=== PATIENT | male | born 1990 | race Caucasian/White ===

== ENCOUNTER 2020-06-25 11:15 | Emergency (ER) | payer BC, SELFPAY ==
[2020-06-25 11:20] VITALS: BP 126/81; PULSE 92; RESP 22; TEMP 36.8; O2SAT 97; BMI 27.1
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
[2020-06-25 11:56] VITALS: BP 126/81; PULSE 92; RESP 22; TEMP 36.8; O2SAT 97
== END 2020-06-25 11:57 | disposition home or self-care (01) ==
PROVIDERS: Emergency Provider Emergency Medicine
DX: L03.115 Cellulitis of right lower limb (principal); Z88.0 Allergy status to penicillin; F17.210 Nicotine dependence, cigarettes, uncomplicated
CPT/HCPCS: 99202; G0463

== ENCOUNTER 2020-12-29 17:25 | Emergency (ER) | payer BC, SELFPAY ==
[2020-12-29 17:30] VITALS: BP 115/73; PULSE 85; RESP 19; TEMP 36.9; O2SAT 97; BMI 27.1
[2020-12-29 17:54] VITALS: BP 115/73; PULSE 85; RESP 19; TEMP 36.9; O2SAT 97
--- NOTE | 2020-12-29 18:05 | HMH.EDUTC ---
[facility] Disposition Clinical Impression: Strep pharyngitis, Exposure to COVID-19 virus Disposition: Home, Self-Care Condition on Discharge: Good Instructions: DI for Strep Throat Additional Instructions: You have been tested for COVID19. Please isolate as if you are positive until test results are received. You are also positive for strep throat. Take antibiotics as directed until they are all gone. Replace toothbrush. Prescriptions: Brompheniramine/Pseudoephed/Dm [Bromfed DM Cough Syrup 5mL] 10 ml PO Q4HP PRN 10 Days #200 ml PRN Reason: Cough Transmission Status: Pending to [facility] Cefdinir [Omnicef 300mg Capsule] 300 mg PO BID 10 Days #20 cap Transmission Status: Pending to [facility] predniSONE [Prednisone 20mg Tab] 20 mg PO BID 5 Days #10 tab Transmission Status: Pending to [facility] Referrals: Provider,Referral, MD [Primary Care Provider] - Forms: Work/School Release Time of Disposition: 18:28 Medical Decision Making - Aakash Inquiry Pt receiving controlled substance: No Vital Signs: 12/29/20 17:30 12/29/20 17:54 Temperature 98.5 F 98.5 F Temperature Source Oral Pulse Rate 85 Pulse Rate [Right Brachial] 85 Respiratory Rate 19 19 Blood Pressure 115/73 Blood Pressure [Right Arm] 115/73 Blood Pressure Mean [Right Arm] 87 Blood Pressure Source [Right Arm] Automatic Cuff Blood Pressure Position [Right Arm] Sitting 02 Sat by Pulse Oximetry 97 Oxygen Delivery Method Room Air - Lab Data Lab results reviewed: Yes: I reviewed the patient's lab results. Orders (Tests/Meds): ORDERS Category Date Time Status Covid-19 Nasal PCR ([facility]) Routine Lab 12/29/20 17:43 Received [facility] HPI - General Stated complaint: covid test Time Seen by Provider: 12/29/20 18:05 Mode of Arrival: Ambulatory Source of Information: Patient Limitations: No Limitations Description of Symptoms (Recalled from Triage Doc. by RN): COVID TEST D/T EXPOSURE. C/O VOMITING, DIARRHEA, SORE THROAT AND LOSS OF VOICE HEENT Symptoms (Recalled from RN notes): Yes Resp Symptoms (Recalled from RN notes): No Skin Symptoms (Recalled from RN notes): No MS Symptoms (Recalled from RN notes): No Functional Status (Recalled from RN notes): WNL - History of Present Illness Provider Complaint: Fever, body aches, chills, cough, congestion, sore throat, losing voice, vomiting and diarrhea X 3 days. COVID19 exposure at work. Onset (ago): day(s) (3) Relieving factors: none Exacerbating factors: none Associated symptoms: cough, fever/chills, malaise, nausea/vomiting Treatments prior to arrival: NSAID - Related Data Previous Rx's Medication Instructions Recorded Mupirocin [Bactroban 2% Ointment 1 applicatio TP TID 7 Days #1 tube 06/25/20 22gm tube] Sulfamethoxazole/Trimethoprim 1 each PO BID 10 Days #20 tab 06/25/20 [Bactrim DS tablet] cephALEXin [cephALEXin 500mg 500 mg PO Q6H 10 Days #40 cap 06/25/20 capsule] Brompheniramine/Pseudoephed/Dm 10 ml PO Q4HP PRN 10 Days #200 ml 12/29/20 [Bromfed DM Cough Syrup 5mL] Cefdinir [Omnicef 300mg Capsule] 300 mg PO BID 10 Days #20 cap 12/29/20 predniSONE [Prednisone 20mg 20 mg PO BID 5 Days #10 tab 12/29/20 Tab] Allergies Allergy/AdvReac Type Severity Reaction Status Date / Time amoxicillin Allergy Verified 06/25/20 11:38 Penicillins Allergy Verified 03/12/19 10:17 red dye Allergy Verified 03/12/19 10:17 - Worker's Comp Is this a Worker's Comp case?: No [facility] History - Hepatitis A Screen Drug use history?: No High risk sexual behaviors?: No History of sexually transmitted infection?: No Currently employed?: No Childcare worker?: No Do you have indoor plumbing?: Yes Do you have electricity?: Yes Attestation statement:: This patient has been screened for Hepatitis A risk factors. I have reviewed the patient's past medical history: Yes - Social History Smoking Status: Current every day smoker Tob
[2020-12-29 18:28] LABS: UTC Strep Screen (Rapid) Positive (Negative)
== END 2020-12-29 18:42 | disposition home or self-care (01) ==
PROVIDERS: Emergency Provider Physician Assistant
DX: J02.0 Streptococcal pharyngitis (principal); Z20.822 Contact with and (suspected) exposure to COVID-19; F17.210 Nicotine dependence, cigarettes, uncomplicated
CPT/HCPCS: 87880; 99203; C9803; G0463; U0003; U0005

== ENCOUNTER 2021-01-09 12:37 | Emergency (ER) | payer BC, SELFPAY ==
[2021-01-09 13:10] VITALS: BP 140/80; PULSE 78; RESP 19; TEMP 36.8; O2SAT 98; BMI 27.7
[2021-01-09 13:30] LABS: UTC Strep Screen (Rapid) Positive (Negative)
--- NOTE | 2021-01-09 13:44 | HMH.EDUTC ---
[facility] [place] Clinical Impression: Strep throat, Exposure to COVID-19 virus Disposition: Home, Self-Care Condition on Discharge: Good Instructions: Strep Throat, DI for Strep Throat, Azithromycin Additional Instructions: *Monitor Temp, Over the counter Motrin or Tylenol as directed/as needed Tylenol every 4 hours and Motrin every 6 hours (as long as your family doctor has told you that you can take it) for fever or pain. and straight to ER if unable to lower temp less than 101.0 after medication given *Warm salt water gargles may help to soothe the throat *Throat Lozenges *Warm fluids like tea with honey may help to soothe the throat *Sleep elevated *Humidifier/Vaporizer Follow up IMMEDIATELY for new or worsening symptoms or no Noticeable improvement over the next 48-72 hours. 911 for difficulty breathing or swallowing You were tested for today for COVID19 your test result should be back in the next 24-48 hours, you was given handout to log on [facility] portal to get your results if you have issues logging on you can call [facility] You was given a handout with instructions for Self Quarantine and Self isolation for while you wait on test results and what to do if they are positive If you are positive the Health Dept will be contacting you also Make sure to take your Vitamins Vit. C Vit D and Zinc if you can take them Prescriptions: Azithromycin [Z-José 250mg Tab] 250 mg PO DIRECTED #6 tab Transmission Status: Pending to [id number] Referrals: Provider,Referral, MD [Primary Care Provider] - As needed Forms: Work/School Release Time of Disposition: 13:52 Medical Decision Making - Aakash Inquiry Pt receiving controlled substance: No Aakash was queried for this patient: No Vital Signs: 01/09/21 13:10 Temperature 98.2 F Temperature Source Oral Pulse Rate [Right Brachial] 78 Respiratory Rate 19 Blood Pressure [Right Arm] 140/80 Blood Pressure Mean [Right Arm] 100 Blood Pressure Source [Right Arm] Automatic Cuff Blood Pressure Position [Right Arm] Sitting 02 Sat by Pulse Oximetry 98 Oxygen Delivery Method Room Air - Lab Data Lab Results 01/09/21 13:29: Strep Scn [facility] Positive A Orders (Tests/Meds): ORDERS Category Date Time Status Covid-19 Nasal PCR ([facility]) Routine Lab 01/09/21 13:15 Received [facility]PI - General Stated complaint: coivd test, symptoms Time Seen by Provider: 01/09/21 13:44 Mode of Arrival: Ambulatory Source of Information: Patient Limitations: No Limitations Description of Symptoms (Recalled from Triage Doc. by RN): PATIENT C/O SORE THROAT, NAUSEA, AND VOMITING X 2 DAYS HEENT Symptoms (Recalled from RN notes): No Resp Symptoms (Recalled from RN notes): No Skin Symptoms (Recalled from RN notes): No MS Symptoms (Recalled from RN notes): No Functional Status (Recalled from RN notes): WNL - History of Present Illness Provider Complaint: Patient states that he has not felt well for several days States that he has been having sore throat, body aches, chills and vomiting states that he has been around his daughter and she just tested positive for COVID last night so he needed to get tested for that too States that he finished medication several days ago for Strep throat but doesnt feel like it is gone - Related Data Previous Rx's Medication Instructions Recorded Azithromycin [Z-José 250mg Tab] 250 mg PO DIRECTED #6 tab 01/09/21 Allergies Allergy/AdvReac Type Severity Reaction Status Date / Time amoxicillin Allergy Verified 06/25/20 11:38 Penicillins Allergy Verified 03/12/19 10:17 red dye Allergy Verified 03/12/19 10:17 - Worker's Comp Is this a Worker's Comp case?: No [facility] History - Hepatitis A Screen Drug use history?: No High risk sexual behaviors?: No History of sexually transmitted infection?: No Currently employed?: No Childcare worker?: No Do you have indoor plumbing?: Yes Do you have electricity?: Yes Attestation
[2021-01-09 13:56] VITALS: BP 140/80; PULSE 78; RESP 19; TEMP 36.8; O2SAT 98
== END 2021-01-09 14:02 | disposition home or self-care (01) ==
PROVIDERS: Emergency Provider Nurse Practitioner
DX: J02.0 Streptococcal pharyngitis (principal); Z20.822 Contact with and (suspected) exposure to COVID-19; F17.210 Nicotine dependence, cigarettes, uncomplicated
CPT/HCPCS: 87880; 99203; C9803; G0463; U0003; U0005

== ENCOUNTER 2021-02-14 08:12 | Emergency (ER) | payer BC, SELFPAY ==
[2021-02-14 08:14] VITALS: BP 142/91; PULSE 74; RESP 18; TEMP 36.7; O2SAT 100; BMI 29.8
--- NOTE | 2021-02-14 08:38 | XR_ITS ---
PROCEDURE: XR ANKLE RT MIN 3V CLINICAL INDICATION: missed step, twisted ankle COMPARISON: No exams were available for comparison FINDINGS: No fracture or dislocation. No lytic or blastic change. There is normal mineralization. The joint spaces are well-preserved. No significant degenerative/arthritic changes. No erosive changes evident. Other findings:A well-circumscribed calcific density is present at the tip of the lateral malleolus suggesting an old fracture or ununited ossification center. There is soft tissue swelling laterally. IMPRESSION: Soft tissue swelling otherwise negative Dictated by: Hermes Bailey MD 02/14/2021 09:26 Hermes Bailey MD in [place] 02/14/2021 09:26
--- NOTE | 2021-02-14 08:38 | XR_ITS ---
PROCEDURE: XR FOOT RT MIN 3V CLINICAL INDICATION: missed step, twisted ankle COMPARISON: No exams were available for comparison FINDINGS: No fracture or dislocation. No lytic or blastic change. There is normal mineralization. The joint spaces are well-preserved. No significant degenerative/arthritic changes. No erosive changes evident. Other findings:None. IMPRESSION: No acute finding Dictated by: Hermes Bailey MD 02/14/2021 09:33 Hermes Bailey MD in [place] 02/14/2021 09:33
--- NOTE | 2021-02-14 08:46 | XR_ITS ---
PROCEDURE: XR TIBIA FIBULA RT 2V CLINICAL INDICATION: injury COMPARISON: No exams were available for comparison FINDINGS: No fracture or dislocation. No lytic or blastic change. There is normal mineralization. Mild osteoarthritic changes of the knee. Rounded coarse calcific density is present superior to the patella measuring 2.5 x 1.7 cm consistent with a synovial osteochondromas/loose body. Bipartite patella is present medially. An additional loose body is noted posteriorly along the proximal tibia at 9 x 4 mm. Other findings:None. IMPRESSION: No acute fracture. 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
--- NOTE | 2021-02-14 08:47 | HMH.EDGENADL ---
ED Disposition Clinical Impression: Right ankle sprain Qualifiers: Encounter type: initial encounter Involved ligament of ankle: anterior talofibular ligament Qualified Code(s): S93.491A - Sprain of other ligament of right ankle, initial encounter Disposition: Home, Self-Care Condition on Discharge: Good Instructions: How to Use Crutches, DI for Ankle Sprain, How To Perform RICE (Rest, Ice, Compress, Elevate) Additional Instructions: Use crutches for 4-5 days. Ice 20 minutes 4-5 times a day and elevate ankle for 2 days. Use air cast for 2 weeks. Ibuprofen for pain. Prescriptions: Ibuprofen [Ibuprofen 800mg Tablet] 800 mg PO Q8HP PRN #15 tab PRN Reason: Moderate Pain Transmission Status: Pending to [facility] Referrals: Provider,Referral, MD [Primary Care Provider] - Forms: Work/School Release - Critical Care Critical Care Time: No Attestation: On 02/14/21, the high probability of a clinically significant, sudden or life threatening deterioration of the following system(s) required my full and direct attention, intervention and personal management. The time I documented below is in addition to time spent performing reported procedures but includes the following listed in this critical care notation. Medical Decision Making - Aakash Inquiry Pt receiving controlled substance: No Aakash was queried for this patient: Yes Vital Signs: 02/14/21 08:14 Temperature 98.1 F Temperature Source Oral Pulse Rate [Right Radial] 74 Respiratory Rate 18 Blood Pressure [Right Arm] 142/91 H Blood Pressure Mean [Right Arm] 108 Blood Pressure Source [Right Arm] Automatic Cuff Blood Pressure Position [Right Arm] Sitting 02 Sat by Pulse Oximetry 100 Oxygen Delivery Method Room Air Orders (Tests/Meds): ED MEDICATIONS Discontinued Medications Generic Name Dose Route Start Last Admin Trade Name Freq PRN Reason Stop Dose Admin Ibuprofen 800 mg 02/14/21 08:47 02/14/21 08:51 Ibuprofen 400 Mg Tablet PO 02/14/21 08:48 800 mg ONCE ONE Administration ORDERS Category Date Time Status Tibia/fibula XR right 2 views [XR tibia fibula RT 2V] Exams 02/14/21 08:46 Taken Stat XR ankle RT min 3V Stat Exams 02/14/21 08:38 Taken XR foot RT min 3V Stat Exams 02/14/21 08:38 Taken - Radiology Data #1 Image(s): Tib/Fib, Ankle, Foot/Toes Image Reviewed: Yes I reviewed the patient's radiology image Tib-fib, ankle, foot: Soft tissue swelling over lateral malleolus. No fractures or dislocations. General Adult HPI - General Chief complaint: Extremity Injury, Lower Stated complaint: AO fall 02/13 rt ankle pain Time Seen by Provider: 02/14/21 08:40 Mode of Arrival: Wheelchair Limitations: No Limitations Description of Symptoms (Recalled from ER Triage Doc. by RN): Pt c/o rt ankle pain after missing his porch step at 2am this morning when coming in from work. Pt states that he twisted his ankle when he missed the step. Positive pulses palpated, swelling noted on outside of rt ankle. - History of Present Illness HPI narrative: Stepped down wrong off of the step at 2 AM and twisted his right ankle causing him to fall. Complains of pain lateral aspect of the lower leg, ankle, and foot. It hurts most in the area of the ankle. States he is not able to bear weight on it. - Related Data Previous Rx's Medication Instructions Recorded Azithromycin [Z-José 250mg Tab] 250 mg PO DIRECTED #6 tab 01/09/21 Ibuprofen [Ibuprofen 800mg 800 mg PO Q8HP PRN #15 tab 02/14/21 Tablet] Allergies Allergy/AdvReac Type Severity Reaction Status Date / Time amoxicillin Allergy Verified 06/25/20 11:38 Penicillins Allergy Verified 03/12/19 10:17 red dye Allergy Verified 03/12/19 10:17 [facility] History - Hepatitis A Screen Drug use history?: No High risk sexual behaviors?: No History of sexually transmitted infection?: No Currently employed?: No Childcare worker?: No Do yo
--- NOTE | 2021-02-14 08:53 | PC.NURSE ---
Pt is going to xray
[2021-02-14 09:50] VITALS: BP 123/71; PULSE 62; RESP 18; TEMP 36.8; O2SAT 99
== END 2021-02-14 09:50 | disposition home or self-care (01) ==
PROVIDERS: Emergency Provider Emergency Medicine
DX: S93.491A Sprain of other ligament of right ankle, initial encounter (principal); X50.1XXA Overexertion from prolonged static or awkward postures, initial encounter; Y92.018 Other place in single-family (private) house as the place of occurrence of the external cause; F17.210 Nicotine dependence, cigarettes, uncomplicated
CPT/HCPCS: 73590; 73610; 73630; 99282

== ENCOUNTER → 2021-04-04 12:04 | Outpatient (CLI) | payer BC, SELFPAY | PROVIDERS: Visit Provider Nurse Practitioner | DX: Z20.822 Contact with and (suspected) exposure to COVID-19 (principal) | CPT/HCPCS: C9803; U0003; U0005 ==

== ENCOUNTER → 2021-05-20 12:54 | Outpatient (CLI) | payer BC, SELFPAY ==
[2021-05-21 08:37] LABS: Covid-19 Nasal PCR Sendout Lex NOT DETECTED
== END ==
PROVIDERS: Visit Provider Nurse Practitioner
DX: Z20.822 Contact with and (suspected) exposure to COVID-19 (principal)
CPT/HCPCS: C9803; U0004; U0005

== ENCOUNTER 2021-06-10 12:14 | Emergency (ER) | payer BC, SELFPAY ==
[2021-06-10 13:45] VITALS: BP 123/71; PULSE 65; RESP 20; TEMP 36.6; O2SAT 98; BMI 30.6
--- NOTE | 2021-06-10 15:03 | HMH.EDGENADL ---
ED Disposition Clinical Impression: Back pain Disposition: Home, Self-Care Condition on Discharge: Good Instructions: Managing Chronic Low Back Pain Additional Instructions: Please follow up with your primary care physician in 2-3 days, you have been referred to one. Please also take lidocaine patches and flexeril as prescribed. May also supplement with tylenol and ibuprofen. Please return if urinary retention, fecal incontinence, or inability to ambulate. 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 The time I documented below is in addition to time spent performing reported procedures but includes the following listed in this critical care notation. Medical Decision Making - Medical Records Medical records reviewed: Yes: I reviewed the patient's medical records. - Aakash Inquiry Pt receiving controlled substance: No Vital Signs: 06/10/21 13:45 06/10/21 15:06 Temperature 97.8 F 97.8 F Temperature Source Oral Pulse Rate 77 Pulse Rate [Left Radial] 65 Respiratory Rate 20 20 Blood Pressure 121/76 Blood Pressure [Right Arm] 123/71 Blood Pressure Mean [Right Arm] 88 Blood Pressure Source [Right Arm] Automatic Cuff Blood Pressure Position [Right Arm] Sitting 02 Sat by Pulse Oximetry 98 Oxygen Delivery Method Room Air Room Air - Lab Data Lab results reviewed: Yes: I reviewed the patient's lab results. Orders (Tests/Meds): ED MEDICATIONS Discontinued Medications Generic Name Dose Route Start Last Admin Trade Name Freq PRN Reason Stop Dose Admin Acetaminophen 1,000 mg 06/10/21 14:11 06/10/21 15:00 Acetaminophen 500mg Tab PO 06/10/21 14:12 1,000 mg ONCE ONE Administration Lidocaine 1 each 06/10/21 14:10 06/10/21 15:00 Lidocaine 5% Transdermal Patch TP 06/10/21 14:11 1 each ONCE ONE Administration Methocarbamol 500 mg 06/10/21 21:00 06/10/21 15:01 Methocarbamol 500mg Tablet PO 07/10/21 20:59 500 mg BID JESSICA Administration Medical Decision Narrative: Mr. Ritchie is a 30 yo w/. PMH for chonic back pain presenting wt lower back. Patient is ambulatory on arrival. No sensory or motor changes, neurovascularly intact. No urinary retnetion, fecal incotninecen or saddle anesthesia. Physcial exam paraspinous tendernss and muscle spasms noted. No spinal midline tenderness. Patient is given lidocaine patches and muscle relaxer for pain control. No concern for cauda equina or significant spinal stenosis at this time. Patient is discharged in stable condition and informed to fu w/ his pcp in 2-3 days for further management. General Adult HPI - General Chief complaint: PAIN Stated complaint: ear pain, back pain, no accident Time Seen by Provider: 06/10/21 13:50 Mode of Arrival: Ambulatory Source of Information: Patient Limitations: No Limitations Description of Symptoms (Recalled from ER Triage Doc. by RN): c/o chronic lower right back pain just increased with pain this past week. Denies any injury - History of Present Illness complaint: chronic back pain Onset (ago): day(s) Location: back Radiation: non-radiation Severity: moderate Severity scale (1-10): 6 Quality: constant Consistency: constant Relieving factors: none Exacerbating factors: none Associated symptoms: denies other symptoms Treatments prior to arriv
[2021-06-10 15:06] VITALS: BP 121/76; PULSE 77; RESP 20; TEMP 36.6; O2SAT 98
== END 2021-06-10 15:07 | disposition home or self-care (01) ==
LOC: UTC 12:18 → ER 13:38
PROVIDERS: Emergency Provider Student in an Organized Health Care Education/Training Program
DX: M54.50 Low back pain, unspecified (principal); G89.29 Other chronic pain; H92.09 Otalgia, unspecified ear; F17.290 Nicotine dependence, other tobacco product, uncomplicated; Z86.16 Personal history of COVID-19; Z79.1 Long term (current) use of non-steroidal anti-inflammatories (NSAID); Z79.899 Other long term (current) drug therapy; Z88.0 Allergy status to penicillin; Z88.1 Allergy status to other antibiotic agents; Z88.3 Allergy status to other anti-infective agents; Z91.048 Other nonmedicinal substance allergy status
CPT/HCPCS: 99283

== ENCOUNTER 2021-06-11 15:05 | Emergency (ER) | payer BC, SELFPAY ==
[2021-06-11 15:05] VITALS: BP 138/90; PULSE 92; RESP 18; TEMP 36.7; O2SAT 98; BMI 30.6
--- NOTE | 2021-06-11 15:14 | HMH.EDGENADL ---
ED Disposition Clinical Impression: Lumbar strain Qualifiers: Encounter type: initial encounter Qualified Code(s): S39.012A - Strain of muscle, fascia and tendon of lower back, initial encounter Disposition: Home, Self-Care Condition on Discharge: Good Instructions: DI for Low Back Pain Additional Instructions: Ibuprofen and prednisone as prescribed. Rest, heating pad to back 30 minutes 3-4 times a day. Additional instructions for BACK PAIN: See your physician as soon as possible for further evaluation. Return immediately if back pain becomes intolerable, or if fever, numbness or weakness of your legs, loss of control of your bowels or bladder. Prescriptions: Ibuprofen [Ibuprofen 800mg Tablet] 800 mg PO Q8HP PRN #15 tab PRN Reason: Moderate Pain [facility] predniSONE [Prednisone 20mg Tab] 20 mg PO BID #10 tab Transmission Status: [facility] Referrals: Provider,Referral, MD [Primary Care Provider] - Forms: Work/School Release - Critical Care Critical Care Time: No Attestation: On 06/11/21, the high probability of a clinically significant, sudden or life threatening deterioration of the following system(s) required my full and direct attention, intervention and personal management. The time I documented below is in addition to time spent performing reported procedures but includes the following listed in this critical care notation. Medical Decision Making - Aakash Inquiry Pt receiving controlled substance: Yes Aakash was queried for this patient: Yes Risks and benefits of using a controlled substance: were discussed with pt by me Medical Decision Narrative: Patient declines any prescription pain medication. He is agreeable to trying anti-inflammatories, NSAIDs and corticosteroids. Discussed imaging. He declines any imaging at this point. Does not require imaging based on mechanism of injury. General Adult HPI - General Stated complaint: lower and mid back pain Time Seen by Provider: 06/11/21 15:14 - History of Present Illness HPI narrative: States that on Thursday he lifted a heavy object and felt a pop in his right lower back and since then has pain. Says today he is unable to straighten up. Seen in the emergency department here yesterday and was put on a lidocaine patch and Flexeril. He says that he refuses to take any sort of prescription pain medication. He has not tried [id number] medications, he is on no NSAIDs. He does not like the Flexeril because of how it makes him feel. He says that they do not want him to return to work when he is not able to straighten up like this and therefore needs another work note for today. He has a prior history of a fractured vertebrae years ago from a fall. He says his back will occasionally flareup on him, but he does not have any chronic pain and does not require any ongoing treatment typically. - Related Data Previous Rx's Medication Instructions Recorded Ibuprofen [Ibuprofen 800mg 800 mg PO Q8HP PRN #15 tab 02/14/21 Tablet] Cyclobenzaprine HCl [Flexeril 10mg 10 mg PO BID PRN 30 Days #30 tab 06/10/21 tablet] Lidocaine [Lidocaine 5% patch] 1 patch TP DAILYP PRN #15 patch 06/10/21 prazosin 1 mg capsule 2 mg PO QHS #30 cap 06/10/21 Ibuprofen [Ibuprofen 800mg 800 mg PO Q8HP PRN #15 tab 06/11/21 Tablet] predniSONE [Prednisone 20mg 20 mg PO BID #10 tab 06/11/21 Tab] Allergies Allergy/AdvReac Type Severity Reaction Status Date / Time amoxicillin Allergy Verified 06/25/20 11:38 Penicillins Allergy Verified 03/12/19 10:17 red dye Allergy Verified 03/12/19 10:17 [facility] History - Hepatitis A Screen Attestation statement:: This patient has been screened for Hepatitis A risk factors. I have reviewed the patient's past medical history: Yes Comment: He did get Moderna vaccines for COVID - Social History Smoking Status: Former smoker
[2021-06-11 16:10] VITALS: BP 132/87; PULSE 90; RESP 18; TEMP 36.7; O2SAT 99
== END 2021-06-11 16:11 | disposition home or self-care (01) ==
PROVIDERS: Emergency Provider Emergency Medicine
DX: S39.012A Strain of muscle, fascia and tendon of lower back, initial encounter (principal); X50.0XXA Overexertion from strenuous movement or load, initial encounter; F17.290 Nicotine dependence, other tobacco product, uncomplicated
CPT/HCPCS: 96372; 99283

== ENCOUNTER 2021-08-01 17:10 | Emergency (ER) | payer BC, SELFPAY ==
[2021-08-01 17:22] VITALS: BP 140/79; PULSE 70; RESP 18; TEMP 36.8; O2SAT 99; BMI 33.9
[2021-08-01 17:40] LABS: UTC Influenza A Antigen Positive (Negative)
[2021-08-01 17:41] LABS: UTC Influenza B Antigen Negative (Negative)
[2021-08-01 17:54] LABS: Strep Scrn Group A (Rapid) Negative (Negative)
--- NOTE | 2021-08-01 17:59 | HMH.EDUTC ---
[facility] [place] Clinical Impression: Influenza A Disposition: Home, Self-Care Condition on Discharge: Good Instructions: Influenza, DI for Influenza -- Adult Additional Instructions: Drink plenty of fluids. Take tylenol or ibuprofen for pain or fever. Take the medications as directed. Follow up with your regular doctor. GO TO THE ER FOR ANY WORSENING SYMPTOMS Prescriptions: Promethazine/Dextromethorphan [Promethazine-Dm Syrup] 5 ml PO Q6HP PRN #240 ml PRN Reason: Cough Transmission Status: Pending to [facility] Ibuprofen [Ibuprofen 800mg Tablet] 800 mg PO Q8HP PRN #30 tab PRN Reason: Moderate Pain Transmission Status: Pending to [facility] Ondansetron [Zofran 4mg ODT] 4 mg PO Q8HP PRN #20 tab PRN Reason: Nausea Transmission Status: Pending to [facility] Oseltamivir Phosphate [Tamiflu 75mg Capsule] 75 mg PO BID #10 cap Transmission Status: Pending to [facility] Referrals: Provider,Referral, [Primary Care Provider] - Forms: Work/School Release Time of Disposition: 18:12 Medical Decision Making - Medical Records Medical records reviewed: No: I reviewed the patient's medical records. - Aakash Inquiry Pt receiving controlled substance: No Vital Signs: 08/01/21 17:22 08/01/21 18:10 Temperature 98.3 F 98.3 F Temperature Source Oral Pulse Rate 70 Pulse Rate [Left] 70 Respiratory Rate 18 18 Blood Pressure 140/79 Blood Pressure [Right Arm] 140/79 Blood Pressure Mean [Right Arm] 99 02 Sat by Pulse Oximetry 99 - Lab Data Lab results reviewed: Yes: I reviewed the patient's lab results. Lab Results 08/01/21 17:28: Group A Strep Rapid Negative 08/01/21 17:28: Influenza Type A Ag Positive A, Influenza Type B Ag Negative Orders (Tests/Meds): ORDERS Category Date Time Status Strep Screen Confirmation Stat Micro 08/01/21 17:28 [place] [facility] [place] - General Stated complaint: fever,vomiting Time Seen by Provider: 08/01/21 17:59 Mode of Arrival: Ambulatory Source of Information: Patient Limitations: No Limitations Description of Symptoms (Recalled from Triage Doc. by RN): pt c/o n/v/d, fever, body aches and chills since last night. HEENT Symptoms (Recalled from RN notes): No Resp Symptoms (Recalled from RN notes): No Skin Symptoms (Recalled from RN notes): No MS Symptoms (Recalled from RN notes): No Functional Status (Recalled from RN notes): wnl - History of Present Illness Provider Complaint: He states that he has had fever up to 103, chills, body aches, cough, and n/v/d since yesterday. - Related Data Previous Rx's Medication Instructions Recorded Lidocaine [Lidocaine 5% patch] 1 patch TP DAILYP PRN #15 patch 06/10/21 Ibuprofen [Ibuprofen 800mg 800 mg PO Q8HP PRN #15 tab 06/11/21 Tablet] prazosin 2 mg capsule 4 mg PO QHS #60 cap 07/12/21 sertraline 50 mg tablet 50 mg PO DAILY #30 tab 07/12/21 Ibuprofen [Ibuprofen 800mg 800 mg PO Q8HP PRN #30 tab 08/01/21 Tablet] Ondansetron [Zofran 4mg ODT] 4 mg PO Q8HP PRN #20 tab 08/01/21 Oseltamivir Phosphate [Tamiflu 75 mg PO BID #10 cap 08/01/21 75mg Capsule] Promethazine/Dextromethorphan 5 ml PO Q6HP PRN #240 ml 08/01/21 [Promethazine-Dm Syrup] Allergies Allergy/AdvReac Type Severity Reaction Status Date / Time amoxicillin Allergy Verified 06/25/21 13:47 Penicillins Allergy Verified 06/25/21 13:47 red dye Allergy Verified 06/25/21 13:47 - Worker's Comp Is this a Worker's Comp case?: No [facility] History - Hepatitis A Screen Attestation statement:: This patient has been screened for Hepatitis A risk factors. I have reviewed the patient's past medical history: Yes Comment: He did get Moderna vaccines for COVID - Social History Smoking Status: Former smoker Tobacco Type: e-cigarettes # Packs/Day (cigarettes): 1 Alcohol Intake: never Alcohol Intake Frequency:: 0-2 drinks per day Substance Use Type: linda
[2021-08-01 18:10] VITALS: BP 140/79; PULSE 70; RESP 18; TEMP 36.8
== END 2021-08-01 18:17 | disposition home or self-care (01) ==
PROVIDERS: Emergency Provider Nurse Practitioner Family
DX: J10.1 Influenza due to other identified influenza virus with other respiratory manifestations (principal); Z79.1 Long term (current) use of non-steroidal anti-inflammatories (NSAID); Z79.899 Other long term (current) drug therapy; Z88.0 Allergy status to penicillin; Z88.1 Allergy status to other antibiotic agents; Z88.3 Allergy status to other anti-infective agents; Z91.048 Other nonmedicinal substance allergy status; Z87.891 Personal history of nicotine dependence
CPT/HCPCS: 87430; 87804; 99213; G0463

== ENCOUNTER 2021-09-09 10:41 | Emergency (ER) | payer BC, SELFPAY ==
[2021-09-09 10:51] VITALS: BP 150/84; PULSE 96; RESP 18; O2SAT 97; BMI 36.0
--- NOTE | 2021-09-09 10:54 | XR_ITS ---
FINAL REPORT TECHNIQUE: 3 views CLINICAL HISTORY: fell down stairs, low back pain FINDINGS: There is no fracture present. There is no malalignment. There are no significant degenerative changes. IMPRESSION: No acute process. Reviewed, Interpreted and Dictated by Andrew Camp III, MD Transcribed by Sarah Wang Authenticated and [facility]
[2021-09-09 11:00] VITALS: BP 150/84; PULSE 96; RESP 18; TEMP 36.7; O2SAT 97; BMI 36.1
--- NOTE | 2021-09-09 11:11 | HMH.EDUTC ---
[facility] [place] Disposition Clinical Impression: Back pain Qualifiers: Back pain location: low back pain Chronicity: unspecified Back pain laterality: bilateral Sciatica presence: without sciatica Qualified Code(s): M54.50 - Low back pain, unspecified Disposition: Home, Self-Care Condition on Discharge: Good Instructions: Low Back Pain, DI for Low Back Pain, Etodolac Additional Instructions: *Etodolac kenneth 8 hours with meal as needed for pain/inflammation *Remember you had a Toradol shot in the clinic today, which is similar to Etodolac *Not additional anti-inflammatory like Ibuprofen motrin, aleve, advil with the above amount of Etodolac. You can still take Tylenol every 4 hours as needed if you need something else for pain *Ice 20 minutes every 2 hours for the first 48 hours after the initial injury followed by moist heat every 20 minutes 3-4 times a day to affected area *Muscle relaxer every 8 hours as needed for muscle spasms but remember, it WILL cause drowsiness You cannot take it and drive, operate machinery or care for small children. *Keep this area active, no movement leads to more stiffness, However take it easy and avoid heavy lifting pushing or pulling *Follow up with you family doctor if no improvement for further treatment Prescriptions: Etodolac 200 mg PO Q8HP PRN #20 cap PRN Reason: Moderate Pain Transmission Status: Received by [facility] Cyclobenzaprine HCl [Flexeril 10mg tablet] 10 mg PO Q8HP PRN #15 tab PRN Reason: Muscle Spasm Transmission Status: Received by [facility] Referrals: Provider,Referral, [Primary Care Provider] - Forms: Work/School Release Medical Decision Making - Aakash Inquiry Pt receiving controlled substance: No Aakash was queried for this patient: No Vital Signs: 09/09/21 10:51 09/09/21 11:00 09/09/21 11:35 Temperature 98.0 F 98.0 F Temperature Source Oral Pulse Rate 96 H Pulse Rate [Left Radial] 96 H 96 H Respiratory Rate 18 18 18 Blood Pressure 150/84 H Blood Pressure [Right Arm] 150/84 H 150/84 H Blood Pressure Mean [Right Arm] 106 106 Blood Pressure Source [Right Arm] Automatic Cuff Automatic Cuff Blood Pressure Position [Right Arm] Sitting Sitting 02 Sat by Pulse Oximetry 97 97 Oxygen Delivery Method Room Air Room Air Orders (Tests/Meds): ED MEDICATIONS Discontinued Medications Generic Name Dose Route Start Last Admin Trade Name Jennifer PRN Reason Stop Dose Admin Ketorolac Tromethamine 60 mg 09/09/21 11:26 09/09/21 11:35 Ketorolac 60mg/2ml Vial IM 09/09/21 11:27 60 mg ONCE ONE Administration Methylprednisolone Sodium Succinate 125 mg 09/09/21 11:26 09/09/21 11:35 Methylprednisolone Sod Succ 125mg Vial IM 09/09/21 11:27 125 mg ONCE ONE Administration - Radiology Data #1 Image(s): L-Spine Image Reviewed: Yes I reviewed the patient's radiology image w/the ED provider Preliminary Findings: No Fracture Seen [facility] [place] HPI - General Stated complaint: AO fall 6/5 back pain Time Seen by Provider: 09/09/21 11:11 Mode of Arrival: Ambulatory Source of Information: Patient Limitations: No Limitations Description of Symptoms (Recalled from Triage Doc. by RN): c/o lower back pain after falling down the stairs last night and hit his back. - History of Present Illness Provider Complaint: Patient states that he has hardwood floors and he was coming down his steps carrying his infant when he slipped and fell landed on his back and slide down the steps State that today he is having pain in his lower back area that is worse with movement Denies loss of control of bowel or bladder - Related Data Home Medications Medication Instructions Recorded Confirmed OLANZapine [Olanzapine] 5 mg PO QHS 09/09/21 09/09/21 Prazosin HCl [Minipress] 5 mg PO HS 09/09/21 09/09/21 Previous Rx's Medication Instructions Recorded Cyclobenzaprine HCl [Flexeril 10mg 10 mg PO Q8HP PRN #15 tab 09/09/21 tablet] Etodola
[2021-09-09 11:35] VITALS: BP 150/84; PULSE 96; RESP 18; TEMP 36.7; O2SAT 97
== END 2021-09-09 11:45 | disposition home or self-care (01) ==
PROVIDERS: Emergency Provider Nurse Practitioner
DX: M54.50 Low back pain, unspecified (principal); W10.9XXA Fall (on) (from) unspecified stairs and steps, initial encounter; Z88.0 Allergy status to penicillin; Z88.1 Allergy status to other antibiotic agents
CPT/HCPCS: 72100; 96372; 99212; G0463

== ENCOUNTER 2021-10-14 15:30 | Emergency (ER) | payer OTHER, BC, SELFPAY ==
[2021-10-14 15:44] VITALS: BP 131/78; PULSE 79; RESP 17; TEMP 37; O2SAT 98; BMI 39.5
--- NOTE | 2021-10-14 16:10 | HMH.EDUTC ---
[facility] [place] Impression: Exposure to COVID-19 virus, Viral syndrome Disposition: Home, Self-Care Condition on Discharge: Good Instructions: Diarrhea, DI for Viral Syndrome, Nausea and Vomiting-Adult, DI for COVID-19 (Suspected or Confirmed ), Preventing the Spread of Coronavirus Discharge Instructions Additional Instructions: *Monitor Temp, Over the counter Motrin or Tylenol as directed/as needed Tylenol every 4 hours and Motrin every 6 hours (as long as your family doctor has told you that you can take it) for fever or pain. and straight to ER if unable to lower temp less than 101.0 after medication given *Warm salt water gargles may help to soothe the throat *Throat Lozenges *Warm fluids like tea with honey may help to soothe the throat *Sleep elevated *Humidifier/Vaporizer Follow up IMMEDIATELY for new or worsening symptoms or no Noticeable improvement over the next 48-72 hours. 911 for difficulty breathing or swallowing You were tested for today for COVID19 your test result should be back in the next 24-48 hours, you may check your results on the [facility] [employer] [facility] for your results Make sure to take your Vitamins Vit. C Vit D and Zinc if you can take them Prescriptions: Ondansetron [Zofran 4mg ODT] 4 mg PO TIDP PRN #10 tab PRN Reason: Vomiting Transmission Status: Pending to [facility] Referrals: Provider,Referral, [Primary Care Provider] - As needed Forms: Work/School Release Time of Disposition: 16:20 Medical Decision Making - Aakash Inquiry Pt receiving controlled substance: No Aakash was queried for this patient: No Vital Signs: 10/14/21 15:44 Temperature 98.6 F Temperature Source Oral Pulse Rate [Left] 79 Respiratory Rate 17 Blood Pressure [Right Arm] 131/78 Blood Pressure Mean [Right Arm] 95 02 Sat by Pulse Oximetry 98 Medical Decision Narrative: Patient state that he has taken zofran recently without complications or reactions [facility] [place] - General Stated complaint: Sore throat,V&D Time Seen by Provider: 10/14/21 16:00 Description of Symptoms (Recalled from Triage Doc. by RN): patient comes in for vomitting, diarrhea, fever, cough. symptoms began yesterday HEENT Symptoms (Recalled from RN notes): Yes Resp Symptoms (Recalled from RN notes): Yes Skin Symptoms (Recalled from RN notes): No MS Symptoms (Recalled from RN notes): No Functional Status (Recalled from RN notes): n/a - History of Present Illness Provider Complaint: Patient states that he started feeling bad yesterday with fever, bodyaches, chills, N/V/D and cough State that today his boss just called and 3 of his coworkers just tested positive for COVID today so he came in to get tested - Related Data Home Medications Medication Instructions Recorded Confirmed Prazosin HCl [Minipress] 5 mg PO HS 09/09/21 10/14/21 OLANZapine [Olanzapine] 10 mg PO HS 10/14/21 10/14/21 Previous Rx's Medication Instructions Recorded Cyclobenzaprine HCl [Flexeril 10mg 10 mg PO Q8HP PRN #15 tab 09/09/21 tablet] Etodolac 200 mg PO Q8HP PRN #20 cap 09/09/21 Ondansetron [Zofran 4mg ODT] 4 mg PO TIDP PRN #10 tab 10/14/21 Allergies Allergy/AdvReac Type Severity Reaction Status Date / Time amoxicillin Allergy Verified 10/14/21 15:47 Penicillins Allergy Verified 10/14/21 15:47 red dye Allergy Verified 10/14/21 15:47 - Worker's Comp Is this a Worker's Comp case?: No [facility] History - Hepatitis A Screen Attestation statement:: This patient has been screened for Hepatitis A risk factors. I have reviewed the patient's past medical history: Yes Comment: He did get Moderna vaccines for COVID - Social History Smoking Status: Former smoker Tobacco Type: e-cigarettes # Packs/Day (cigarettes): 1 Alcohol Intake: never Alcohol Intake Frequency:: 0-2 drinks per day Substance Use Type: marijuana Occupational Status: other ROS Obtained: Yes All systems reviewed & no additional complaints
[2021-10-14 16:24] VITALS: BP 131/78; PULSE 79; RESP 17; TEMP 37
== END 2021-10-14 16:25 | disposition home or self-care (01) ==
PROVIDERS: Emergency Provider Nurse Practitioner
DX: Z20.822 Contact with and (suspected) exposure to COVID-19 (principal); B34.9 Viral infection, unspecified; J02.9 Acute pharyngitis, unspecified; R11.10 Vomiting, unspecified; R19.7 Diarrhea, unspecified; R50.9 Fever, unspecified; R05.9 Cough, unspecified
CPT/HCPCS: 99212; C9803; G0463; U0003; U0005

== ENCOUNTER → 2021-11-24 23:39 | Outpatient (CLI) | payer OTHER, BC, SELFPAY | PROVIDERS: Visit Provider Emergency Medicine | DX: Z20.822 Contact with and (suspected) exposure to COVID-19 (principal); R09.89 Other specified symptoms and signs involving the circulatory and respiratory systems | CPT/HCPCS: C9803; U0003; U0005 ==

== ENCOUNTER 2021-12-19 12:50 | Emergency (ER) | payer OTHER, BC, SELFPAY ==
[2021-12-19 12:51] VITALS: BP 143/86; PULSE 99; RESP 18; TEMP 36.4; O2SAT 99; BMI 33.9
--- NOTE | 2021-12-19 13:05 | EXP.UTC ---
Discharge Plan Disposition Patient Disposition: Home, Self-Care Condition: Good Prescriptions Prescriptions: New cyclobenzaprine 10 mg Tablet 10 mg PO BID PRN (Reason: Muscle Spasm) Qty: 20 0RF azithromycin [Zithromax] 250 mg tablet 250 mg PO UD DOSE PK Qty: 6 0RF Rx Instructions: Take two (2) tablets today, then one (1) tablet days #2 thru #5 methylprednisolone 4 mg Tablets,Dose Pack 4 mg PO DIRECTED Qty: 21 0RF benzonatate [benzonatate] 100 mg capsule 100 mg PO TIDP PRN (Reason: Cough) Qty: 30 0RF No Action prazosin 5 mg capsule 5 mg PO HS Qty: 30 1RF olanzapine [Zyprexa] 15 mg tablet 15 mg PO HS Qty: 30 1RF cyclobenzaprine 10 MG tablet 10 mg PO Q8HP PRN (Reason: Muscle Spasm) Qty: 15 0RF etodolac 200 MG capsule 200 mg PO Q8HP PRN (Reason: Moderate Pain) Qty: 20 0RF ondansetron 4 MG tablet,disintegrating 4 mg PO TIDP PRN (Reason: Vomiting) Qty: 10 0RF Referrals Follow up/Referrals: Provider,Referral, MD [Primary Care Provider] - See instructions Activity Restrictions/Add. Instructions Additional Instructions/Restrictions: Drink plenty of fluids. Take tylenol or ibuprofen for pain or fever. Take the medications as directed. Follow up with your regular doctor. GO TO THE ER FOR ANY WORSENING SYMPTOMS Quarantine until you know the results of your covid-19 test. Notify your school or workplace of your results and follow their instructions regarding return to work/school. Clinical Impressions Clinical Impression: Viral syndrome, Low back strain, Bronchitis Stand Alone Forms Stand Alone Forms: Work/School Release Instructions Patient Instructions: Low Back Pain (Alternative Therapy), DI for Acute Bronchitis, DI for Viral Syndrome Discharge ED Provider: Viral Hardwick [facility] [place] General Stated complaint: back pain Time Seen by Provider: 12/19/21 13:05 History of Present Illness Provider Complaint: He has 2 complaints today. His first is that he has felt bad and had a low grade fever for the past 1 day. He also states that he pulled a muscle in his back while lifting something heavy yesterday. Related Data Previous Rx's Medication Instructions Recorded cyclobenzaprine 10 mg tablet 10 mg PO Q8HP PRN Muscle Spasm #15 09/09/21 tabs etodolac 200 mg capsule 200 mg PO Q8HP PRN Moderate Pain 09/09/21 #20 caps ondansetron 4 mg disintegrating 4 mg PO TIDP PRN Vomiting #10 tabs 10/14/21 tablet olanzapine 15 mg tablet (Zyprexa) 15 mg PO HS #30 tabs 12/10/21 prazosin 5 mg capsule 5 mg PO HS Anxiety #30 caps 12/10/21 azithromycin 250 mg tablet 250 mg PO UD DOSE PK #6 tabs 12/19/21 (Zithromax) benzonatate 100 mg capsule 100 mg PO TIDP PRN Cough #30 caps 12/19/21 cyclobenzaprine 10 mg tablet 10 mg PO BID PRN Muscle Spasm #20 12/19/21 tabs methylprednisolone 4 mg tablets in 4 mg PO DIRECTED #21 tabs 12/19/21 a dose pack Allergies Allergy/AdvReac Type Severity Reaction Status Date / Time amoxicillin Allergy Verified 12/11/21 11:47 Penicillins Allergy Verified 12/11/21 11:47 red dye Allergy Verified 12/11/21 11:47 PFSH PFSH Social History Smoking Status: Former smoker alcohol intake: never substance use type: marijuana current occupational status: other Travel in the last 8 weeks: None number of children: 4 ROS Obtained: Yes All systems reviewed & no additional complaints except as documented Constitutional Constitutional: Reports system reviewed and no additional complaints, except as documented, Denies chills and Denies fever(s) Eyes Eyes: Denies eye discharge ENT Ears, Nose, Mouth, and Throat: Denies dysphagia, Denies sore throat and Denies throat swelling Cardiovascular Cardiovascular: Denies chest pain and Denies dyspnea Respiratory Respiratory: Denies chest congestion, Denies cough and Denies dyspnea Gastrointestinal Gastrointestingal: Alison
[2021-12-19 13:11] VITALS: BMI 33.9
--- NOTE | 2021-12-19 13:11 | XR_ITS ---
FINAL REPORT CLINICAL HISTORY: cough/soa, exposed to covid FINDINGS: 2 views of the chest were obtained. The heart size is normal. The mediastinum is unremarkable. There is mild bronchial wall thickening consistent with bronchitis. There are no pleural effusions. There is no pneumothorax. There is no acute osseous abnormality. IMPRESSION: Mild bronchial wall thickening consistent with bronchitis. Reviewed, Interpreted and Dictated by Andrew Camp III, MD Transcribed by Debora Garcai Authenticated and . [facility]
[2021-12-19 14:17] VITALS: BP 143/86; PULSE 99; RESP 18; TEMP 36.4; O2SAT 99
== END 2021-12-19 14:18 | disposition home or self-care (01) ==
PROVIDERS: Emergency Provider Nurse Practitioner Family
DX: B34.9 Viral infection, unspecified (principal); J20.9 Acute bronchitis, unspecified; Z87.891 Personal history of nicotine dependence; S39.012A Strain of muscle, fascia and tendon of lower back, initial encounter; X50.0XXA Overexertion from strenuous movement or load, initial encounter; Z20.822 Contact with and (suspected) exposure to COVID-19
CPT/HCPCS: 71046; 99212; C9803; G0463; U0003; U0005

== ENCOUNTER → 2022-01-07 22:56 | Outpatient (CLI) | payer OTHER, SELFPAY ==
[2022-01-07 23:14] LABS: Coronavirus 19, PCR Not Detected (NotDetected); Influenza A, PCR Not Detected (NotDetected); Influenza B, PCR Not Detected (NotDetected)
== END ==
PROVIDERS: Visit Provider Emergency Medicine
DX: Z20.822 Contact with and (suspected) exposure to COVID-19 (principal); R05.9 Cough, unspecified; J02.9 Acute pharyngitis, unspecified
CPT/HCPCS: C9803; U0003; U0005

== ENCOUNTER 2022-01-10 13:18 | Emergency (ER) | payer OTHER, SELFPAY ==
[2022-01-10 13:31] VITALS: BP 156/94; PULSE 78; RESP 18; TEMP 37.1; O2SAT 98; BMI 38.0
--- NOTE | 2022-01-10 14:01 | EXP.UTC ---
Discharge Plan Disposition Patient Disposition: Home, Self-Care Condition: Good Prescriptions Prescriptions: New methylprednisolone 4 mg Tablets,Dose Pack 4 mg PO DIRECTED Qty: 21 0RF cefdinir 300 mg capsule 300 mg PO BID Qty: 20 0RF fluticasone propionate [fluticasone propionate] 50 mcg/actuation spray,suspension 1 spr intranasal DAILY 30 Days Qty: 120 0RF No Action prazosin 5 mg capsule 5 mg PO HS Qty: 30 1RF olanzapine [Zyprexa] 15 mg tablet 15 mg PO HS Qty: 30 1RF cyclobenzaprine 10 MG tablet 10 mg PO Q8HP PRN (Reason: Muscle Spasm) Qty: 15 0RF etodolac 200 MG capsule 200 mg PO Q8HP PRN (Reason: Moderate Pain) Qty: 20 0RF ondansetron 4 MG tablet,disintegrating 4 mg PO TIDP PRN (Reason: Vomiting) Qty: 10 0RF cyclobenzaprine 10 mg Tablet 10 mg PO BID PRN (Reason: Muscle Spasm) Qty: 20 0RF azithromycin [Zithromax] 250 mg tablet 250 mg PO UD DOSE PK Qty: 6 0RF Rx Instructions: Take two (2) tablets today, then one (1) tablet days #2 thru #5 methylprednisolone 4 mg Tablets,Dose Pack 4 mg PO DIRECTED Qty: 21 0RF benzonatate [benzonatate] 100 mg capsule 100 mg PO TIDP PRN (Reason: Cough) Qty: 30 0RF Referrals Follow up/Referrals: Provider,Referral, MD [Primary Care Provider] - See instructions Activity Restrictions/Add. Instructions Additional Instructions/Restrictions: Drink plenty of fluids. Take tylenol or ibuprofen for pain or fever. Take the medications as directed. Follow up with your regular doctor. GO TO THE ER FOR ANY WORSENING SYMPTOMS Clinical Impressions Clinical Impression: Otitis media Stand Alone Forms Stand Alone Forms: Work/School Release Instructions Patient Instructions: Middle Ear Infection Discharge ED Provider: Viral Hardwick [facility] [place] General Stated complaint: LT ear pain Mode of Arrival: Ambulatory Source of Information: Patient Limitations: No Limitations Time Seen by Provider: 01/10/22 13:28 Description of Symptoms (Recalled from Triage Doc. by RN): pt comes in with c/o left ear pain, left sided headache. symptoms ongoing for 1 week. HEENT Symptoms (Recalled from RN notes): Yes Resp Symptoms (Recalled from RN notes): No Skin Symptoms (Recalled from RN notes): No MS Symptoms (Recalled from RN notes): No Functional Status (Recalled from RN notes): n/a History of Present Illness Provider Complaint: He c/o left ear pain and a sore throat for the past 7 days. Related Data Previous Rx's Medication Instructions Recorded cyclobenzaprine 10 mg tablet 10 mg PO Q8HP PRN Muscle Spasm #15 09/09/21 tabs etodolac 200 mg capsule 200 mg PO Q8HP PRN Moderate Pain 09/09/21 #20 caps ondansetron 4 mg disintegrating 4 mg PO TIDP PRN Vomiting #10 tabs 10/14/21 tablet olanzapine 15 mg tablet (Zyprexa) 15 mg PO HS #30 tabs 12/10/21 prazosin 5 mg capsule 5 mg PO HS Anxiety #30 caps 12/10/21 azithromycin 250 mg tablet 250 mg PO UD DOSE PK #6 tabs 12/19/21 (Zithromax) benzonatate 100 mg capsule 100 mg PO TIDP PRN Cough #30 caps 12/19/21 cyclobenzaprine 10 mg tablet 10 mg PO BID PRN Muscle Spasm #20 12/19/21 tabs methylprednisolone 4 mg tablets in 4 mg PO DIRECTED #21 tabs 12/19/21 a dose pack cefdinir 300 mg capsule 300 mg PO BID #20 caps 01/10/22 fluticasone propionate 50 1 spr intranasal DAILY 30 days 01/10/22 mcg/actuation nasal #120 ea spray,suspension methylprednisolone 4 mg tablets in 4 mg PO DIRECTED #21 tabs 01/10/22 a dose pack Allergies Allergy/AdvReac Type Severity Reaction Status Date / Time amoxicillin Allergy Verified 01/10/22 13:33 Penicillins Allergy Verified 01/10/22 13:33 red dye Allergy Verified 01/10/22 13:33 Worker's Comp Is this a Worker's Comp case?: No PFSH PFSH Medical History Bipolar I disorder Nightmares associated with chronic post-traumatic stress disorder Social History (Reviewed 1
[2022-01-10 14:12] VITALS: BP 156/94; PULSE 78; RESP 18; TEMP 37.1
== END 2022-01-10 14:12 | disposition home or self-care (01) ==
PROVIDERS: Emergency Provider Nurse Practitioner Family
DX: H66.90 Otitis media, unspecified, unspecified ear (principal)
CPT/HCPCS: 99212; G0463

== ENCOUNTER 2022-01-27 15:56 | Emergency (ER) | payer OTHER, BC, SELFPAY ==
[2022-01-27 18:25] VITALS: BP 140/92; PULSE 98; RESP 19; TEMP 36.8; O2SAT 99; BMI 40.4
--- NOTE | 2022-01-27 18:35 | EXP.UTC ---
Discharge Plan Disposition Patient Disposition: Home, Self-Care Condition: Good Prescriptions Prescriptions: New benzonatate 100 mg capsule 100 mg PO TID PRN (Reason: cough) Qty: 30 0RF ofloxacin 0.3 % drops 10 drp otic (ear) BID 14 Days Qty: 10 0RF No Action olanzapine [Zyprexa] 15 mg tablet 15 mg PO HS Qty: 30 1RF prazosin 5 mg capsule 5 mg PO HS Qty: 30 1RF cyclobenzaprine 10 MG tablet 10 mg PO Q8HP PRN (Reason: Muscle Spasm) Qty: 15 0RF etodolac 200 MG capsule 200 mg PO Q8HP PRN (Reason: Moderate Pain) Qty: 20 0RF ondansetron 4 MG tablet,disintegrating 4 mg PO TIDP PRN (Reason: Vomiting) Qty: 10 0RF cyclobenzaprine 10 mg Tablet 10 mg PO BID PRN (Reason: Muscle Spasm) Qty: 20 0RF azithromycin [Zithromax] 250 mg tablet 250 mg PO UD DOSE PK Qty: 6 0RF Rx Instructions: Take two (2) tablets today, then one (1) tablet days #2 thru #5 methylprednisolone 4 mg Tablets,Dose Pack 4 mg PO DIRECTED Qty: 21 0RF benzonatate [benzonatate] 100 mg capsule 100 mg PO TIDP PRN (Reason: Cough) Qty: 30 0RF methylprednisolone 4 mg Tablets,Dose Pack 4 mg PO DIRECTED Qty: 21 0RF cefdinir 300 mg capsule 300 mg PO BID Qty: 20 0RF fluticasone propionate [fluticasone propionate] 50 mcg/actuation spray,suspension 1 spr intranasal DAILY 30 Days Qty: 120 0RF Referrals Follow up/Referrals: Provider,Referral, MD [Primary Care Provider] - See instructions Activity Restrictions/Add. Instructions Additional Instructions/Restrictions: *Monitor Temp, Over the counter Motrin or Tylenol as directed/as needed Tylenol every 4 hours and Motrin every 6 hours (as long as your family doctor has told you that you can take it) for fever or pain. and straight to ER if unable to lower temp less than 101.0 after medication given *Warm salt water gargles may help to soothe the throat *Throat Lozenges? *Warm fluids like tea with honey may help to soothe the throat? *Sleep elevated *Humidifier/Vaporizer Your throat swab was sent for culture. Those results are typically sent to your primary care. Be sure to follow up in 2-3 days with your family doctor/primary care physician if no improvement so they can review those result and treat if necessary. If you don?t have a primary care doctor, I recommend you get one but in the mean time, you will have to return to a walk in clinic Follow up IMMEDIATELY for new or worsening symptoms or no Noticeable improvement over the next 48-72 hours. 911 for difficulty breathing or swallowing You were tested for today for COVID19 your test result should be back in the next 24-48 hours, you may check your results on the [facility] Portal Stand Alone Forms Stand Alone Forms: Work/School Release Instructions Patient Instructions: Ofloxacin Otic, Coronavirus Disease 2019 Discharge ED Provider: Kerline Talley [facility] [place] General Stated complaint: SORE THROAT, MARINO, BODY ACHES Mode of Arrival: Ambulatory Source of Information: Patient Limitations: No Limitations Time Seen by Provider: 01/27/22 18:35 Description of Symptoms (Recalled from Triage Doc. by RN): body aches chills fatigue HEENT Symptoms (Recalled from RN notes): Yes Resp Symptoms (Recalled from RN notes): Yes Skin Symptoms (Recalled from RN notes): No MS Symptoms (Recalled from RN notes): No Functional Status (Recalled from RN notes): n/a History of Present Illness Provider Complaint: Patient states that she has been having body aches, chills, sore throat and having pain in both ears State that he was treated for ear infection a couple weeks ago but doesnt think it got better States that child was recently dx with COVID and he took a home test and it showed positive Related Data Previous Rx's Medication Instructions Recorded cyclobenzaprine 10 mg tablet 10 mg PO Q8HP PRN Muscle Spasm #15 09/09/21 tabs etodolac 200 mg capsule 200 mg PO Q8HP PRN Moderate
[2022-01-27 18:51] LABS: UTC Strep Screen (Rapid) Negative (Negative)
[2022-01-27 19:26] VITALS: BP 140/62; PULSE 98; RESP 19; TEMP 36.8; O2SAT 99
== END 2022-01-27 19:29 | disposition home or self-care (01) ==
PROVIDERS: Emergency Provider Nurse Practitioner
DX: U07.1 COVID-19 (principal); J02.9 Acute pharyngitis, unspecified; H92.03 Otalgia, bilateral; R51.9 Headache, unspecified; M79.10 Myalgia, unspecified site; R53.82 Chronic fatigue, unspecified; F31.9 Bipolar disorder, unspecified; F43.10 Post-traumatic stress disorder, unspecified; Z79.51 Long term (current) use of inhaled steroids; Z79.52 Long term (current) use of systemic steroids; Z79.899 Other long term (current) drug therapy; Z88.0 Allergy status to penicillin; Z88.1 Allergy status to other antibiotic agents; Z88.3 Allergy status to other anti-infective agents; Z91.048 Other nonmedicinal substance allergy status; Z87.891 Personal history of nicotine dependence
CPT/HCPCS: 87880; 99213; C9803; G0463; U0003; U0005

== ENCOUNTER 2022-03-23 15:05 | Emergency (ER) | payer BC, SELFPAY ==
[2022-03-23 15:31] VITALS: BP 116/85; PULSE 89; RESP 16; TEMP 36.8; O2SAT 98; BMI 43.4
--- NOTE | 2022-03-23 16:06 | EXP.UTC ---
Discharge Plan Disposition Patient Disposition: Home, Self-Care Condition: Good Prescriptions Prescriptions: New ibuprofen 800 mg tablet 800 mg PO Q8H PRN (Reason: pain) Qty: 30 0RF Rx Instructions: Do not take medication today as you have had a toradol injection. No Action prazosin 5 mg capsule 5 mg PO HS Qty: 30 1RF Lybalvi 15-10 mg tablet 1 tab PO DAILY Qty: 30 1RF cyclobenzaprine 10 MG tablet 10 mg PO Q8HP PRN (Reason: Muscle Spasm) Qty: 15 0RF etodolac 200 MG capsule 200 mg PO Q8HP PRN (Reason: Moderate Pain) Qty: 20 0RF cyclobenzaprine 10 mg Tablet 10 mg PO BID PRN (Reason: Muscle Spasm) Qty: 20 0RF fluticasone propionate [fluticasone propionate] 50 mcg/actuation spray,suspension 1 spr intranasal DAILY 30 Days Qty: 120 0RF Referrals Follow up/Referrals: Provider,Referral, MD [Primary Care Provider] - See instructions Activity Restrictions/Add. Instructions Additional Instructions/Restrictions: Set up with a PCP. If pain continues will need to follow up with PCP/Ortho. Clinical Impressions Clinical Impression: Acute pain of right shoulder due to trauma Instructions Patient Instructions: DI for Chronic Pain -- Adult, How To Perform RICE (Rest, Ice, Compress, Elevate) Discharge ED Provider: Michelle Kunz [facility] General Stated complaint: muscle spasms, left shoulder pain no accident Mode of Arrival: Ambulatory Source of Information: Patient Limitations: No Limitations Time Seen by Provider: 03/23/22 15:35 Description of Symptoms (Recalled from Triage Doc. by RN): pt comes in with c/o left shoulder pain. symptoms began 5 days ago HEENT Symptoms (Recalled from RN notes): No Resp Symptoms (Recalled from RN notes): No Skin Symptoms (Recalled from RN notes): No MS Symptoms (Recalled from RN notes): Yes Functional Status (Recalled from RN notes): n/a History of Present Illness Provider Complaint: Pt states that his step dad and he were moving a refrigerator and his step dad dropped his side and the fridge pinned him at the shoulder against the wall. He states that the shoulder has hurt him a lot since that time and he has not be able to move his shoulder due to the pain. He states that he has used Icy Hot and Tylenol/Motrin for the pain but has had minimal relief. States that the pain is unbearable. Related Data Previous Rx's Medication Instructions Recorded cyclobenzaprine 10 mg tablet 10 mg PO Q8HP PRN Muscle Spasm #15 09/09/21 tabs etodolac 200 mg capsule 200 mg PO Q8HP PRN Moderate Pain 09/09/21 #20 caps cyclobenzaprine 10 mg tablet 10 mg PO BID PRN Muscle Spasm #20 12/19/21 tabs fluticasone propionate 50 1 spr intranasal DAILY 30 days 01/10/22 mcg/actuation nasal #120 ea spray,suspension olanzapine 15 mg-samidorphan 10 mg 1 tab PO DAILY #30 tabs 02/20/22 tablet (Lybalvi) prazosin 5 mg capsule 5 mg PO HS Anxiety #30 caps 02/20/22 ibuprofen 800 mg tablet 800 mg PO Q8H PRN pain #30 tabs 03/23/22 Allergies Allergy/AdvReac Type Severity Reaction Status Date / Time amoxicillin Allergy Verified 03/23/22 15:32 Penicillins Allergy Verified 03/23/22 15:32 red dye Allergy Verified 03/23/22 15:32 Worker's Comp Is this a Worker's Comp case?: No [facility] Disclaimer: The information contained in this section may have been updated after the patient was seen, as this information can be updated by other users. Medical History Bipolar I disorder Nightmares associated with chronic post-traumatic stress disorder Social History Smoking Status: Former smoker alcohol intake: never substance use type: marijuana current occupational status: other Travel in the last 8 weeks: None number of children: 4 ROS Obtained: Yes All systems reviewed & no additional complaints except as documented Constitutional Constitutional: Report
[2022-03-23 16:14] VITALS: BP 116/85; PULSE 89; RESP 16; TEMP 36.8
== END 2022-03-23 16:15 | disposition home or self-care (01) ==
PROVIDERS: Emergency Provider Nurse Practitioner Family
DX: M25.511 Pain in right shoulder (principal); W23.0XXA Caught, crushed, jammed, or pinched between moving objects, initial encounter; Y93.89 Activity, other specified
CPT/HCPCS: 96372; 99212; G0463

== ENCOUNTER → 2022-04-24 14:32 | Outpatient (CLI) | payer BC, SELFPAY ==
[2022-04-24 15:35] LABS: Basophils # 0.1 K/mm3 (0-0.2); Basophils % 0.5 % (0.1-2.0); Eosinophils # 0.1 K/mm3 (0.0-0.4); Eosinophils % 0.8 % (0.1-12.0); Hematocrit 45.6 % (42.0-52.0); Hemoglobin 15.2 g/dL (14.1-18.0); Lymphocytes # 2.5 K/mm3 (0.7-4.5); Lymphocytes % 20.8 % (10-50); Mean Corpuscular HGB Conc 33.4 g/dL (31.8-35.4); Mean Corpuscular Hemoglobin 29.5 pg (27.0-31.2); Mean Corpuscular Volume 88.2 fl (80-94); Mean Platelet Volume 9.3 fl (7.4-10.4); Monocytes # 0.6 K/mm3 (0.1-1.0); Monocytes % 5.3 % (1.7-9.3); Neutrophils # 8.7 K/mm3 (1.8-7.8); Neutrophils % 72.7 % (37.0-80.0); Platelet Count 295 K/mm3 (142-424); Red Blood Count 5.17 M/mm3 (4.60-6.20); Red Cell Distribution Width 13.4 % (11.5-17.5)
[2022-04-24 15:58] LABS: Alanine Aminotransferase 19 U/L (12-78); Albumin Level 4.7 g/dl (3.5-5.0); Albumin/Globulin Ratio 1.3 (1.1-1.8); Alkaline Phosphatase 119 U/L (38-126); Aspartate Amino Transferase 24 U/L (17-59); Bilirubin,Total 0.5 mg/dl (0.2-1.3); Blood Urea Nitrogen 15 mg/dl (9-20); Calcium 9.4 mg/dl (8.4-10.2); Carbon Dioxide 25 mmol/L (22.0-30.0); Chloride 104 mmol/L (98-107); Estimated Glomerular Filt Rate 114 ml/min (>60); GFR (African American) 137 ML/MIN (>60); Globulin 3.6 g/dL (1.3-3.2); Glucose 90 mg/dl (74-100); Sodium 139 mmol/L (136-145); Total Protein,Serum 8.3 g/dl (6.3-8.2)
[2022-04-24 16:00] LABS: Hemoglobin A1C 5.3 % (4.0-6.0)
[2022-04-24 16:14] LABS: Free Thyroxine Index 4.8 ug/dL (5.93-13.13); T4 (Thyroxine) 8.8 ug/dl (5.53-11.0); Triiodothryronine (T3) Uptake 54 % (23.5-40.5)
[2022-04-24 16:27] LABS: Thyroid Stimulating Hormone 1.99 uIU/mL (0.465-4.68)
[2022-04-24 16:48] LABS: Vitamin B12 409 pg/mL (239-931)
[2022-04-24 18:13] LABS: Iron 76 ug/dL (49-181)
[2022-04-24 18:23] LABS: Total Iron Binding Capacity 318 ug/dL (261-462)
[2022-04-26 11:32] LABS: Thyroid Peroxidase Antibodies 10 IU/mL (0-34)
[2022-05-08 18:05] LABS: Testosterone, Total, LC/MS 538.8 ng/dL (264.0-916.0); Testosterone,Free 38.5 pg/mL (8.7-25.1)
[2022-05-09 18:08] LABS: 1,25 Dihydroxy Vitamin D 35 pg/mL (.); 1,25-Dihydroxy, Vitamin D-2 <10 pg/mL (.); 1,25-Dihydroxy, Vitamin D-3 31 pg/mL (.)
== END ==
PROVIDERS: PCP Family Medicine; Visit Provider Nurse Practitioner Psychiatric/Mental Health
DX: Z00.00 Encounter for general adult medical examination without abnormal findings (principal); R53.83 Other fatigue; Z79.899 Other long term (current) drug therapy
CPT/HCPCS: 36415; 80053; 82607; 82652; 83036; 83540; 83550; 84402; 84403; 84436; 84443; 84479; 85025; 86376

== ENCOUNTER 2022-06-26 17:28 | Emergency (ER) | payer BC, SELFPAY ==
[2022-06-26 17:48] VITALS: BP 129/86; PULSE 102; RESP 20; TEMP 36.7; O2SAT 97; BMI 40.8
--- NOTE | 2022-06-26 18:00 | EXP.UTC ---
Discharge Plan Disposition Patient Disposition: Home, Self-Care Condition: Good Prescriptions Prescriptions: No Action phentermine [Adipex-P] 37.5 mg tablet 37.5 mg PO DAILY Qty: 30 0RF Rx Instructions: must administer 30 minutes before or 1-2 hours after breakfast Lybalvi 15-10 mg tablet 1 tab PO DAILY Qty: 30 1RF prazosin 5 mg capsule 5 mg PO HS Qty: 30 1RF Referrals Follow up/Referrals: Provider,Referral, MD [Primary Care Provider] - See instructions Activity Restrictions/Add. Instructions Additional Instructions/Restrictions: Drink extra fluids with and between meals. If you have difficulty drinking, try very small amounts of water or suck on ice chips. ? Avoid fruit juices, as these do not replace minerals and can actually increase diarrhea. ? Children and adults can use sports drinks to replenish electrolytes. Younger children and infants should use products formulated for children, like oral rehydration solutions. ? Eat food in small amounts and let your stomach recover. ? Get lots of rest. You may feel tired or weak. ? No greasy or fried foods for the next 24-48 hours BRAT diet Bananas Rice Apples and [place] ? Make sure to drink plenty of liquids ? Return if needed ? Straight to ER if any life threatening symptoms Phenergan as directed for Nausea and vomiting ? You was given an outpatient order for diarrhea panel, please collect specimen and bring back to outpatient lab then call back to the [facility] or follow up with family doctor for results ? Follow up with family doctor in the next 48-72 hours if no improvement or any worsening of symptoms Clinical Impressions Clinical Impression: Nausea & vomiting Qualifiers: Vomiting type: unspecified Qualified Code(s): R11.2 - Nausea with vomiting, unspecified Stand Alone Forms Stand Alone Forms: Work/School Release Instructions Patient Instructions: DI for Nausea -- Adult, Nausea and Vomiting-Adult Discharge ED Provider: Kerline Talley [facility] [place] HPI General Stated complaint: vomiting abd pain body ache Mode of Arrival: Ambulatory Source of Information: Patient Limitations: No Limitations Time Seen by Provider: 06/26/22 18:13 Description of Symptoms (Recalled from Triage Doc. by RN): pt states he has been vomiting since last night, also reports epigastric pain and dizziness HEENT Symptoms (Recalled from RN notes): No Resp Symptoms (Recalled from RN notes): No Skin Symptoms (Recalled from RN notes): No MS Symptoms (Recalled from RN notes): No Functional Status (Recalled from RN notes): wnl History of Present Illness Provider Complaint: Patient states that he started vomiting last night States that he has continued to have vomiting on and off since and has vomited so much his stomach muscles feels sore States that earlier he felt a little dizzy after vomiting but hasnt felt like that since States that this evening when he was still vomiting he wasnt able to go to work so he came in to get checked out Related Data Previous Rx's Medication Instructions Recorded olanzapine 15 mg-samidorphan 10 mg 1 tab PO DAILY #30 tabs 05/13/22 tablet (Lybalvi) phentermine 37.5 mg tablet 37.5 mg PO DAILY #30 tabs 05/13/22 (Adipex-P) prazosin 5 mg capsule 5 mg PO HS Anxiety #30 caps 05/13/22 Allergies Allergy/AdvReac Type Severity Reaction Status Date / Time amoxicillin Allergy Verified 06/10/22 14:03 Penicillins Allergy Verified 06/10/22 14:03 red dye Allergy Verified 06/10/22 14:03 Worker's Comp Is this a Worker's Comp case?: No Is this an H Worker's Comp?: No Is this a Rolanda Worker's Comp?: No [facility] Disclaimer: The information contained in this section may have been updated after the patient was seen, as this information can be updated by other users. Medical History (Updated 06/26/22 @ 19:10 by Kerline Talley APRN) Bipolar I disorder Fatigue Nightmares as
[2022-06-26 19:08] VITALS: BP 128/68; PULSE 80; RESP 18; TEMP 36.8; O2SAT 99
== END 2022-06-26 19:12 | disposition home or self-care (01) ==
PROVIDERS: Emergency Provider Nurse Practitioner
DX: R10.13 Epigastric pain (principal); R42 Dizziness and giddiness; R11.2 Nausea with vomiting, unspecified
CPT/HCPCS: 99212; 99214; G0463

== ENCOUNTER 2022-07-14 19:10 | Emergency (ER) | payer BC, SELFPAY ==
[2022-07-14 19:11] VITALS: BP 169/113; PULSE 114; RESP 17; TEMP 36.6; O2SAT 98; BMI 41.7
[2022-07-14 19:36] VITALS: BMI 41.5
--- NOTE | 2022-07-14 19:48 | CT_ITS ---
PROCEDURE INFORMATION: Exam: CT Abdomen And Pelvis With Contrast Exam date and time: 07/14/2022 8:01 PM Age: 31 years old Clinical indication: Abdominal pain; Generalized; Additional info: Abdominal pain with blood in stool TECHNIQUE: Imaging protocol: Computed tomography of the abdomen and pelvis with contrast. Radiation optimization: All CT scans at this facility use at least one of these dose optimization techniques: automated exposure control; mA and/or kV adjustment per patient size (includes targeted exams where dose is matched to clinical indication); or iterative reconstruction. Contrast material: ISOVUE; Contrast volume: 75 ml; Contrast route: IV; REPORTING DATA: Count of CT and Cardiac NM exams in prior 12 months: This patient has received 0 known CTs and 0 known cardiac nuclear medicine studies in the 12 months prior to the current study. COMPARISON: CR XR CHEST 2V 12/19/2021 1:14 PM FINDINGS: Liver: Normal. No mass. Gallbladder and bile ducts: Normal. No calcified stones. No ductal dilation. Pancreas: Normal. No ductal dilation. Spleen: Normal. No splenomegaly. Adrenal glands: Normal. No mass. Kidneys and ureters: Normal. No hydronephrosis. Stomach and bowel: There is diffuse wall thickening of the distal colon extending from the distal transverse colon to the distal descending colon with mild surrounding fatty stranding. Findings are compatible with active colitis. No evidence of bowel obstruction. Appendix: No evidence of appendicitis. Intraperitoneal space: Unremarkable. No free air. No significant fluid collection. Vasculature: Unremarkable. No abdominal aortic aneurysm. Lymph nodes: Unremarkable. No enlarged lymph nodes. Urinary bladder: Unremarkable as visualized. Reproductive: Unremarkable as visualized. Bones/joints: Mild degenerative changes noted in the lower spine Soft tissues: Unremarkable. IMPRESSION: Findings of diffuse colitis in the descending and distal transverse colon
[2022-07-14 19:50] LABS: Microscopic, Urine URINE MICROSCOPIC (MICROSCOPIC)
[2022-07-14 19:57] LABS: Basophils % 0.1 % (0.1-2.0); Eosinophils % 0.1 % (0.1-12.0); Hematocrit 51.3 % (42.0-52.0); Hemoglobin 16.6 g/dL (14.1-18.0); Lymphocytes # 0.9 K/mm3 (0.7-4.5); Lymphocytes % 5.8 % (10-50); Mean Corpuscular HGB Conc 32.3 g/dL (31.8-35.4); Mean Corpuscular Hemoglobin 28.8 pg (27.0-31.2); Mean Corpuscular Volume 89.1 fl (80-94); Mean Platelet Volume 8.8 fl (7.4-10.4); Monocytes # 0.4 K/mm3 (0.1-1.0); Monocytes % 2.6 % (1.7-9.3); Neutrophils # 14.5 K/mm3 (1.8-7.8); Neutrophils % 91.3 % (37.0-80.0); Platelet Count 274 K/mm3 (142-424); Red Blood Count 5.75 M/mm3 (4.60-6.20); Red Cell Distribution Width 13.8 % (11.5-17.5); White Blood Count 15.8 K/mm3 (4.8-10.8)
[2022-07-14 19:58] LABS: Appearance,Urine CLEAR (Clear); Bilirubin,Urine Negative (Negative); Blood, Urine TRACE-I (Negative); Color,Urine YELLOW (Yellow); Glucose,Urine (UA) Negative (Negative); Ketones,Urine 1+ (Negative); Leukocyte Esterase,Urine Negative (Negative); Nitrate,Urine Negative (Negative); Protein,Urine Negative (Negative); Specific Gravity, Urine 1.025 (1.005-1.030); Urobilinogen,Urine 0.2 EU/dl (0.2)
[2022-07-14 19:58] LABS: MANUAL DIFFERENTIAL MANUAL DIFFERENTIAL (MANUAL DIFF)
[2022-07-14 20:01] LABS: Alanine Aminotransferase 30 U/L (12-78); Albumin Level 4.7 g/dl (3.5-5.0); Albumin/Globulin Ratio 1.3 (1.1-1.8); Alkaline Phosphatase 119 U/L (38-126); Amylase 60 U/L (30-110); Anion Gap 11.2 mEq/L (5-15); Aspartate Amino Transferase 28 U/L (17-59); Bilirubin,Total 0.4 mg/dl (0.2-1.3); Blood Urea Nitrogen 11 mg/dl (9-20); Calcium 9.1 mg/dl (8.4-10.2); Carbon Dioxide 24 mmol/L (22.0-30.0); Chloride 103 mmol/L (98-107); Creatinine Clearance Estimated 174 mL/min (50-200); Estimated Glomerular Filt Rate 132 ml/min (>60); GFR (African American) 160 ML/MIN (>60); Globulin 3.7 g/dL (1.3-3.2); Glucose 134 mg/dl (74-100); Lipase 38 U/L (23-300); Potassium 4.2 mmoL/L (3.5-5.1); Sodium 134 mmol/L (136-145); Total Protein,Serum 8.4 g/dl (6.3-8.2)
[2022-07-14 20:03] LABS: Activated Partial Thrombo Time 27.9 seconds (22.8-30.6)
[2022-07-14 20:05] LABS: RBC,Urine Occasional #/hpf (0-3)
[2022-07-14 20:30] LABS: Lymphocytes % 5 % (10-50); Neutrophils % 95 % (42-76); Total Cells Counted 100
[2022-07-14 20:31] LABS: Platelet Estimate Normal; RBC Morphology Normal
--- NOTE | 2022-07-14 20:50 | PC.NURSE ---
patient in room, no needs voiced at this time.
--- NOTE | 2022-07-14 21:01 | HMH.EDABDPAI ---
Discharge Plan Disposition Patient Disposition: Home, Self-Care Prescriptions Prescriptions: New metronidazole 500 mg Tablet 500 mg PO TID Qty: 21 0RF levofloxacin 500 mg tablet 500 mg PO DAILY Qty: 7 0RF No Action prazosin 5 mg capsule 5 mg PO HS Qty: 30 1RF Lybalvi 15-10 mg tablet 1 tab PO DAILY Label Comments: TAKE 1 TABLET BY MOUTH ONCE DAILY phentermine [Adipex-P] 37.5 mg tablet 37.5 mg PO DAILY Rx Instructions: must administer 30 minutes before or 1-2 hours after breakfast Referrals Follow up/Referrals: Viktor Bentley MD [Primary Care Provider] - See instructions Clinical Impressions Clinical Impression: Colitis, SIRS (systemic inflammatory response syndrome) Stand Alone Forms Stand Alone Forms: Work/School Release Instructions Patient Instructions: DI for Acute Abdominal Pain Discharge ED Provider: Theodore (ED)Car Abdominal Pain HPI General Chief Complaint: Abdominal Pain Stated Complaint: Abdominal pain, urination with blood Time Seen by Provider: 07/14/22 20:15 Mode of Arrival: Ambulatory Source of Information: Patient, Spouse and Medical Record Limitations: No Limitations Description of Symptoms (Recalled from ER Triage Doc. by RN): 31 M presents from home for c/o of abdominal pain with 2-3 days of constipation. Patient associates blood in his stool, nausea, vomiting, and decreased appetite. History of Present Illness HPI narrative: pt presents with acute abd pain with brrb today w/o vomiting or fever - no travel or raw food - no prev episodes complaint: abdominal pain Onset (ago): hour(s) Consistency: intermittent Location: RLQ Severity: moderate Quality: cramping Associated symptoms: hematochezia Related Data Home Medications Medication Instructions Recorded Confirmed olanzapine 15 mg-samidorphan 10 mg 1 tab PO DAILY Mood 07/14/22 07/14/22 tablet (Lybalvi) phentermine 37.5 mg tablet 37.5 mg PO DAILY Weight loss 07/14/22 07/14/22 (Adipex-P) Previous Rx's Medication Instructions Recorded prazosin 5 mg capsule 5 mg PO HS Anxiety #30 caps 05/13/22 levofloxacin 500 mg tablet 500 mg PO DAILY #7 tabs 07/14/22 metronidazole 500 mg tablet 500 mg PO TID #21 tabs 07/14/22 Allergies Allergy/AdvReac Type Severity Reaction Status Date / Time amoxicillin Allergy Verified 07/08/22 09:44 Penicillins Allergy Verified 07/08/22 09:44 red dye Allergy Verified 07/08/22 09:44 [facility] Disclaimer: The information contained in this section may have been updated after the patient was seen, as this information can be updated by other users. Medical History (Updated 07/14/22 @ 21:24 by Car Jaimes (ELIAS)MD) Bipolar I disorder Fatigue Nightmares associated with chronic post-traumatic stress disorder Social History Smoking Status: Current every day smoker tobacco type: e-cigarettes alcohol intake: never substance use type: marijuana current occupational status: other Travel in the last 8 weeks: None number of children: 4 ROS Obtained: Yes All systems reviewed & no additional complaints except as documented Physical Exam General General appearance: alert and obese Head Head exam: normocephalic Eye Eye exam: Present PERRL and EOMI; Absent scleral icterus ENT ENT exam: Present mucous membranes moist Neck Neck exam: Present trachea midline Respiratory Respiratory exam: Present normal lung sounds bilaterally; Absent respiratory distress Cardiovascular Cardiovascular exam: Present regular rate Abdominal Exam Abdominal exam: Present soft and tenderness; Absent guarding, rebound or rigidity Abdominal tenderness: Present RLQ and mild Rectal Exam Rectal exam: Present normal rectal tone and heme (-) stool Extremities Exam Extremities exam: Present full ROM Neurological Exam Neurological exam: Present alert, oriented X3 and CN II-XII intact; Absent motor se
[2022-07-14 21:22] LABS: Occult Blood,Stool Negative (Negative)
[2022-07-14 21:26] LABS: Lactic Acid 0.9 mmol/L (0.7-2.1)
[2022-07-14 21:46] LABS: Procalcitonin 0.045 ng/mL (0.0-2.0)
--- NOTE | 2022-07-14 21:46 | PC.NURSE ---
Rounded on patient, warm blanket given to patient. no other needs were voiced at this time.
[2022-07-14 22:03] VITALS: BP 140/86; PULSE 84; RESP 17; TEMP 36.6; O2SAT 99
[2022-07-14 22:19] LABS: Erythrocyte Sedimentation Rate 4 mm/hr (0-15)
== END 2022-07-14 22:08 | disposition home or self-care (01) ==
PROVIDERS: Student in an Organized Health Care Education/Training Program; Emergency Provider Emergency Medicine; PCP Family Medicine
DX: K52.9 Noninfective gastroenteritis and colitis, unspecified (principal); R65.10 Systemic inflammatory response syndrome (SIRS) of non-infectious origin without acute organ dysfunction; F17.290 Nicotine dependence, other tobacco product, uncomplicated
CPT/HCPCS: 74177; 80053; 81001; 82150; 82272; 83605; 83690; 84145; 85007; 85025; 85651; 85730; 86140; 96360; 96361; 96365; 96374; 96375; 99284; 99285; G0328; J0131; J2405; Q9967

== ENCOUNTER 2022-11-20 17:48 | Emergency (ER) | payer BC, SELFPAY ==
[2022-11-20 17:49] VITALS: BP 128/85; PULSE 81; RESP 18; TEMP 36.8; O2SAT 99; BMI 38.9
--- NOTE | 2022-11-20 18:25 | EXP.UTC ---
Discharge Plan Disposition Patient Disposition: Home, Self-Care Condition: Good Prescriptions Prescriptions: New sulfamethoxazole-trimethoprim [Bactrim DS] 800-160 mg Tablet 1 tab PO BID Qty: 20 0RF cephalexin 500 mg capsule 500 mg PO QID Qty: 40 0RF mupirocin 2 % ointment 1 applic topical TID 7 Days Qty: 15 0RF No Action phentermine [Adipex-P] 37.5 mg tablet 37.5 mg PO DAILY Qty: 30 0RF Rx Instructions: must administer 30 minutes before or 1-2 hours after breakfast cyclobenzaprine 10 mg tablet 10 mg PO TID PRN (Reason: muscle spasm) Qty: 60 0RF prednisone 20 mg tablet 20 mg PO BID 5 Days Qty: 10 0RF prazosin 5 mg capsule 5 mg PO HS Qty: 30 1RF Lybalvi 15-10 mg tablet 1 tab PO DAILY Qty: 30 2RF Referrals Follow up/Referrals: Viktor Bentley MD [Primary Care Provider] - See instructions Activity Restrictions/Add. Instructions Additional Instructions/Restrictions: Keep the affected area clean and dry. Follow up with your regular doctor. Take the antibiotics as directed and apply the topical antibiotics as directed. Apply warm wet compresses to the affected area three or four times per day. GO TO THE ER FOR ANY WORSENING SYMPTOMS Clinical Impressions Clinical Impression: Abscess of skin, Cellulitis Stand Alone Forms Stand Alone Forms: Work/School Release Instructions Patient Instructions: DI for Cellulitis -- Adult, DI for Skin Abscess Discharge ED Provider: Viral Hardwick [facility] General Stated complaint: poss spiderbite on RT side Time Seen by Provider: 11/20/22 18:25 History of Present Illness Provider Complaint: He states that for the past 3 days he has had a red tender area on his right side. Related Data Previous Rx's Medication Instructions Recorded prazosin 5 mg capsule 5 mg PO HS Anxiety #30 caps 05/13/22 olanzapine 15 mg-samidorphan 10 mg 1 tab PO DAILY Mood #30 tabs 08/11/22 tablet (Lybalvi) phentermine 37.5 mg tablet 37.5 mg PO DAILY Weight loss #30 08/12/22 (Adipex-P) tabs cyclobenzaprine 10 mg tablet 10 mg PO TID PRN muscle spasm #60 10/08/22 tabs prednisone 20 mg tablet 20 mg PO BID 5 days #10 tabs 10/08/22 cephalexin 500 mg capsule 500 mg PO QID #40 caps 11/20/22 mupirocin 2 % topical ointment 1 applic topical TID 7 days #15 11/20/22 grams sulfamethoxazole 800 1 tab PO BID #20 tabs 11/20/22 mg-trimethoprim 160 mg tablet (Bactrim DS) Allergies Allergy/AdvReac Type Severity Reaction Status Date / Time amoxicillin Allergy Verified 10/08/22 13:54 Penicillins Allergy Verified 10/08/22 13:54 red dye Allergy Verified 10/08/22 13:54 [facility] Disclaimer: The information contained in this section may have been updated after the patient was seen, as this information can be updated by other users. Medical History Bipolar I disorder Fatigue Nightmares associated with chronic post-traumatic stress disorder Surgical History History of placement of ear tubes History of tonsillectomy History of wisdom tooth extraction, class IV edentulism Family History Other Family history of aneurysm Family history of cancer Social History Smoking Status: Current every day smoker tobacco type: e-cigarettes smoking status stop date: 05/08/20 alcohol intake: current substance use type: former substance user and marijuana current occupational status: employed Travel in the last 8 weeks: None household members: family housing: house number of children: 4 education level: college caffeine: Yes special pancho needs: No do you feel safe at home: Yes victim of physical abuse: No victim of emotional abuse: No victim of sexual abuse: No would you like helpful sources:
[2022-11-20 19:09] VITALS: BP 128/85; PULSE 81; RESP 18; TEMP 36.8; O2SAT 99
== END 2022-11-20 19:10 | disposition home or self-care (01) ==
PROVIDERS: Emergency Provider Nurse Practitioner Family; PCP Family Medicine
DX: L02.91 Cutaneous abscess, unspecified (principal); L03.90 Cellulitis, unspecified; F31.9 Bipolar disorder, unspecified; F51.5 Nightmare disorder; F43.12 Post-traumatic stress disorder, chronic
CPT/HCPCS: 99212; 99214; G0463

== ENCOUNTER 2022-12-21 16:10 | Emergency (ER) | payer SELFPAY ==
[2022-12-21 16:40] VITALS: BP 128/86; PULSE 69; RESP 18; TEMP 36.8; O2SAT 100; BMI 39.0
[2022-12-21 16:40] LABS: UTC Strep Screen (Rapid) Negative (Negative)
--- NOTE | 2022-12-21 16:44 | EXP.UTC ---
Discharge Plan Disposition Patient Disposition: Home, Self-Care Condition: Good Prescriptions Prescriptions: New ondansetron 4 mg tablet,disintegrating 4 mg PO Q8H PRN (Reason: nausea and vomiting) Qty: 10 0RF No Action phentermine [Adipex-P] 37.5 mg tablet 37.5 mg PO DAILY Qty: 30 0RF Rx Instructions: must administer 30 minutes before or 1-2 hours after breakfast cyclobenzaprine 10 mg tablet 10 mg PO TID PRN (Reason: muscle spasm) Qty: 60 0RF prednisone 20 mg tablet 20 mg PO BID 5 Days Qty: 10 0RF prazosin 5 mg capsule 5 mg PO HS Qty: 30 1RF Lybalvi 15-10 mg tablet 1 tab PO DAILY Qty: 30 2RF sulfamethoxazole-trimethoprim [Bactrim DS] 800-160 mg Tablet 1 tab PO BID Qty: 20 0RF cephalexin 500 mg capsule 500 mg PO QID Qty: 40 0RF mupirocin 2 % ointment 1 applic topical TID 7 Days Qty: 15 0RF Referrals Follow up/Referrals: Viktor Bentley MD [Primary Care Provider] - See instructions Activity Restrictions/Add. Instructions Additional Instructions/Restrictions: *Monitor Temp, Over the counter Motrin or Tylenol as directed/as needed Tylenol every 4 hours and Motrin every 6 hours (as long as your family doctor has told you that you can take it) for fever or pain. and straight to ER if unable to lower temp less than 101.0 after medication given *Warm salt water gargles may help to soothe the throat *Throat Lozenges? *Warm fluids like tea with honey may help to soothe the throat? *Sleep elevated *Humidifier/Vaporizer Your throat swab was sent for culture. Those results are typically sent to your primary care. Be sure to follow up in 2-3 days with your family doctor/primary care physician if no improvement so they can review those result and treat if necessary. If you don?t have a primary care doctor, I recommend you get one but in the mean time, you will have to return to a walk in clinic Follow up IMMEDIATELY for new or worsening symptoms or no Noticeable improvement over the next 48-72 hours. 911 for difficulty breathing or swallowing You were tested for today for COVID19 your test result should be back in the next 24 hours You may check your results on the [facility] for your results Clinical Impressions Clinical Impression: Viral syndrome Stand Alone Forms Stand Alone Forms: Work/School Release Instructions Patient Instructions: Nausea and Vomiting-Adult, Diarrhea, Sore Throat Discharge ED Provider: Kerline Talley [facility] [place] HPI General Stated complaint: sore throat, V/D body aches Time Seen by Provider: 12/21/22 16:44 History of Present Illness Provider Complaint: Patient states that he was around 4 coworkers last week that has tested positive for COVID State that he started feeling bad a couple days ago with N/V/D but today started with body aches, chills, sore throat and feeling bad So today when he was still not feeling well he came in wanting to get tested for COVID and strep throat Related Data Previous Rx's Medication Instructions Recorded prazosin 5 mg capsule 5 mg PO HS Anxiety #30 caps 05/13/22 olanzapine 15 mg-samidorphan 10 mg 1 tab PO DAILY Mood #30 tabs 08/11/22 tablet (Lybalvi) ondansetron 4 mg disintegrating 4 mg PO Q8H PRN nausea and 12/21/22 tablet vomiting #10 tabs Allergies Allergy/AdvReac Type Severity Reaction Status Date / Time amoxicillin Allergy Verified 12/21/22 16:45 Penicillins Allergy Verified 12/21/22 16:45 red dye Allergy Verified 12/21/22 16:45 [facility] Disclaimer: The information contained in this section may have been updated after the patient was seen, as this information can be updated by other users. Medical History Bipolar I disorder Fatigue Nightmares associated with chronic post-traumatic stress disorder Surgical History Hist
[2022-12-21 16:55] VITALS: BP 128/86; PULSE 64; RESP 18; TEMP 36.8; O2SAT 100
== END 2022-12-21 16:55 | disposition home or self-care (01) ==
PROVIDERS: Emergency Provider Nurse Practitioner; PCP Family Medicine
DX: R11.2 Nausea with vomiting, unspecified (principal); R53.81 Other malaise; B34.9 Viral infection, unspecified; F17.210 Nicotine dependence, cigarettes, uncomplicated; F31.9 Bipolar disorder, unspecified; F51.5 Nightmare disorder; F43.12 Post-traumatic stress disorder, chronic; Z20.822 Contact with and (suspected) exposure to COVID-19
CPT/HCPCS: 87635; 87880; 99212; 99214; G0463

== ENCOUNTER 2023-01-17 00:28 | Emergency (ER) | payer SELFPAY ==
[2023-01-17 00:29] VITALS: BP 126/78; PULSE 97; RESP 16; TEMP 37; O2SAT 100; BMI 38.0
--- NOTE | 2023-01-17 00:56 | HMH.EDGENADL ---
Discharge Plan Disposition Patient Disposition: Home, Self-Care Condition: Good Prescriptions Prescriptions: New ondansetron 4 mg tablet,disintegrating 4 mg PO Q8H PRN (Reason: nausea and vomiting) 4 Days Qty: 12 0RF Referrals Follow up/Referrals: Viktor Bentley MD [Primary Care Provider] - See instructions Activity Restrictions/Add. Instructions Additional Instructions/Restrictions: You were evaluated in the emergency department today. Please coal picker your prescription for Zofran and take as needed for nausea and vomiting. Take Tylenol and ibuprofen at home as needed for pain and fever. Follow-up with your primary care provider over the next week for reassessment. Eat a bland diet until your symptoms have resolved. Return to the emergency department for new or worsening symptoms. Clinical Impressions Clinical Impression: Gastroenteritis Stand Alone Forms Stand Alone Forms: Work/School Release Instructions Patient Instructions: DI for Diarrhea and Traveler's Diarrhea -- Adult, DI for Nausea -- Adult Discharge ED Provider: Nery Chavarria General Adult HPI General Chief complaint: Nausea/Vomiting/Diarrhea Stated complaint: vomiting, diarrhea Time Seen by Provider: 01/17/23 00:32 History of Present Illness HPI narrative: This patient is a 32-year-old male with a history of obesity presenting to the emergency department for evaluation with concern for nausea, vomiting, and diarrhea that started when he woke up for work 01/16 evening. He tried to go to work tonight, but he got sent home for vomiting every hour. He notes nonbloody, nonbilious emesis, and loose watery/nonbloody diarrhea. He denies any associated abdominal pain. He denies any other concerns, such as fevers, chills, cough, congestion, dysuria, or other issues. He has not taken any medications. Related Data Previous Rx's Medication Instructions Recorded ondansetron 4 mg disintegrating 4 mg PO Q8H PRN nausea and 01/17/23 tablet vomiting 4 days #12 tabs Allergies Allergy/AdvReac Type Severity Reaction Status Date / Time amoxicillin Allergy Verified 12/21/22 16:45 Penicillins Allergy Verified 12/21/22 16:45 red dye Allergy Verified 12/21/22 16:45 [facility] Disclaimer: The information contained in this section may have been updated after the patient was seen, as this information can be updated by other users. Medical History Bipolar I disorder Fatigue Nightmares associated with chronic post-traumatic stress disorder Surgical History History of placement of ear tubes History of tonsillectomy History of wisdom tooth extraction, class IV edentulism Family History Other Family history of aneurysm Family history of cancer Social History Smoking Status: Current every day smoker tobacco type: e-cigarettes smoking status stop date: 05/08/20 alcohol intake: current substance use type: former substance user and marijuana current occupational status: employed Travel in the last 8 weeks: None household members: family housing: house number of children: 4 education level: college caffeine: Yes special pancho needs: No do you feel safe at home: Yes victim of physical abuse: No victim of emotional abuse: No victim of sexual abuse: No would you like helpful sources: No ROS Obtained: Yes All systems reviewed & no additional complaints except as documented Physical Exam General General appearance: alert, in no apparent distress and obese Head Head exam: atraumatic and normocephalic Eye Eye exam: Present normal appearance, PERRL and EOMI ENT ENT exam: Present normal exam, normal oropharynx, mucous membranes moist and normal external ear exam Neck Neck exam: Present normal inspection,
[2023-01-17 01:00] VITALS: BP 121/76; PULSE 88; RESP 18; O2SAT 98
[2023-01-17 01:30] VITALS: BP 110/60; PULSE 87; O2SAT 95
[2023-01-17 02:06] LABS: Adenovirus F 40/41, stool Not Detected (NotDetected); Astrovirus Not Detected (NotDetected); Campylobacter Not Detected (NotDetected); Cryptosporidium Not Detected (NotDetected); Cyclospora Cayetanesis Not Detected (NotDetected); Entamoeba histolytica Not Detected (NotDetected); Enteroaggregative E coli Not Detected (NotDetected); Enteropathogenic E coli Not Detected (NotDetected); Enterotoxigenic E coli Not Detected (NotDetected); Giardia lamblia Not Detected (NotDetected); Plesimonas Shigalloides, PCR Not Detected (NotDetected); Rotavirus A Not Detected (NotDetected); Salmonella, PCR Not Detected (NotDetected); Sapovirus Not Detected (NotDetected); Shiga-like toxin E coli Not Detected (NotDetected); Shigella Enterovasive E coli Not Detected (NotDetected); Vibrio Cholerae Not Detected (NotDetected); Vibrio, PCR Not Detected (NotDetected); Yersinia Entercolitica, PCR Not Detected (NotDetected)
[2023-01-17 02:28] VITALS: BP 133/79; PULSE 79; RESP 15; TEMP 36.8; O2SAT 98
[2023-01-20 15:25] LABS: Clostridium Difficile A/B, PCR Detected (NotDetected)
[2023-01-20 15:26] LABS: Norovirus Detected (NotDetected)
== END 2023-01-17 02:32 | disposition home or self-care (01) ==
PROVIDERS: Emergency Provider Emergency Medicine; PCP Family Medicine
DX: A04.72 Enterocolitis due to Clostridium difficile, not specified as recurrent (principal); A08.11 Acute gastroenteropathy due to Norwalk agent; F17.290 Nicotine dependence, other tobacco product, uncomplicated; F51.5 Nightmare disorder; F43.12 Post-traumatic stress disorder, chronic; F31.9 Bipolar disorder, unspecified; E66.9 Obesity, unspecified
CPT/HCPCS: 87507; 99283

== ENCOUNTER 2023-03-06 07:18 | Emergency (ER) | payer BC, SELFPAY ==
[2023-03-06 07:20] VITALS: BP 149/98; PULSE 99; RESP 20; TEMP 37.2; O2SAT 98; BMI 36.3
--- NOTE | 2023-03-06 07:42 | HMH.EDGENADL ---
Discharge Plan Disposition Patient Disposition: Home, Self-Care Condition: Fair Prescriptions Prescriptions: New ondansetron 4 mg tablet,disintegrating 4 mg PO TID PRN (Reason: nausea and vomiting) 5 Days Qty: 14 0RF No Action metronidazole 500 mg tablet 500 mg PO Q8H Qty: 30 0RF ondansetron 4 mg tablet,disintegrating 4 mg PO Q8H PRN (Reason: nausea and vomiting) 4 Days Qty: 12 0RF Referrals Follow up/Referrals: Viktor Bentley MD [Primary Care Provider] - See instructions Activity Restrictions/Add. Instructions Additional Instructions/Restrictions: You are positive for influenza B. Drink plenty of fluids. Take Tylenol or ibuprofen if needed for fever, chills, body aches. You have been prescribed Zofran if needed for nausea and vomiting. Dissolve this under your tongue up to 3 times daily if needed. Take any other home medications as previously prescribed/recommended. Make an appointment with your primary care physician for reevaluation in 2 to 3 days. Return to the emergency department with any new, worsening, or otherwise concerning symptoms. Clinical Impressions Clinical Impression: Influenza B Discharge ED Provider: Rolando Ro General Adult HPI General Chief complaint: Fever Stated complaint: congestion cough vomiting Time Seen by Provider: 03/06/23 07:27 History of Present Illness HPI narrative: This 32-year-old male presents to the emergency department with concerns of flu/COVID exposure. Patient states he has had cough, congestion, nausea, vomiting, diarrhea in the last 48 hours. He states he was exposed to flu a and flu B recently. He also has a coworker positive for COVID. Patient states he had fever overnight but on arrival here he did not have fever. He denies any known chronic medical conditions, no daily medications. He is allergic to amoxicillin, penicillin, and red dye 40. Patient states he would like to be tested for viral syndromes because he has a fianc? at home Patient states he has vomited, nonbloody, nonbilious. No bloody or melanotic stool. Related Data Previous Rx's Medication Instructions Recorded ondansetron 4 mg disintegrating 4 mg PO Q8H PRN nausea and 01/17/23 tablet vomiting 4 days #12 tabs metronidazole 500 mg tablet 500 mg PO Q8H #30 tabs 01/21/23 ondansetron 4 mg disintegrating 4 mg PO TID PRN nausea and 03/06/23 tablet vomiting 5 days #14 tabs Allergies Allergy/AdvReac Type Severity Reaction Status Date / Time amoxicillin Allergy Verified 12/21/22 16:45 Penicillins Allergy Verified 12/21/22 16:45 red dye Allergy Verified 12/21/22 16:45 [facility] Disclaimer: The information contained in this section may have been updated after the patient was seen, as this information can be updated by other users. Medical History Bipolar I disorder Fatigue Nightmares associated with chronic post-traumatic stress disorder Surgical History History of placement of ear tubes History of tonsillectomy History of wisdom tooth extraction, class IV edentulism Family History Other Family history of aneurysm Family history of cancer Social History Smoking Status: Current every day smoker tobacco type: e-cigarettes smoking status stop date: 05/08/20 alcohol intake: current substance use type: former substance user and marijuana current occupational status: employed Travel in the last 8 weeks: None household members: family housing: house number of children: 4 education level: college caffeine: Yes special pancho needs: No do you feel safe at home: Yes victim of physical abuse: No victim of emotional abuse: No victim of sexual abuse: No would you like helpful sources: No ROS Obtained: Yes All s
[2023-03-06 08:01] VITALS: BP 130/95; PULSE 92; O2SAT 98
[2023-03-06 08:07] LABS: Coronavirus 19, PCR Not Detected (NotDetected); Influenza A, PCR Not Detected (NotDetected)
[2023-03-06 08:16] LABS: Basophils % 0.5 % (0.1-2.0); Eosinophils # 0.1 K/mm3 (0.0-0.4); Eosinophils % 1.7 % (0.1-12.0); Hematocrit 43.8 % (42.0-52.0); Hemoglobin 14.7 g/dL (14.1-18.0); Lymphocytes # 0.8 K/mm3 (0.7-4.5); Lymphocytes % 16.4 % (10-50); Mean Corpuscular HGB Conc 33.5 g/dL (31.8-35.4); Mean Corpuscular Hemoglobin 30.2 pg (27.0-31.2); Mean Platelet Volume 8.8 fl (7.4-10.4); Monocytes # 0.5 K/mm3 (0.1-1.0); Monocytes % 10.4 % (1.7-9.3); Neutrophils # 3.6 K/mm3 (1.8-7.8); Platelet Count 243 K/mm3 (142-424); Red Blood Count 4.87 M/mm3 (4.60-6.20); Red Cell Distribution Width 13.7 % (11.5-17.5)
[2023-03-06 08:20] LABS: Chloride 102 mmol/L (98-107)
[2023-03-06 08:21] LABS: Potassium 4.1 mmoL/L (3.5-5.1); Sodium 137 mmol/L (136-145)
[2023-03-06 08:23] LABS: Blood Urea Nitrogen 16 mg/dl (9-20); Creatinine Clearance Estimated 236 mL/min (50-200); Estimated Glomerular Filt Rate 113 ml/min (>60); GFR (African American) 136 ML/MIN (>60)
[2023-03-06 08:24] LABS: Anion Gap 10.1 mEq/L (5-15); Calcium 8.9 mg/dl (8.4-10.2); Carbon Dioxide 29 mmol/L (22.0-30.0); Glucose 97 mg/dl (74-100)
[2023-03-06 08:30] VITALS: BP 118/84; PULSE 74; O2SAT 94
[2023-03-06 08:30] LABS: Influenza B, PCR Detected (NotDetected)
[2023-03-06 08:54] VITALS: BP 118/84; PULSE 72; RESP 17; TEMP 37.1; O2SAT 99
[2023-03-06 09:00] VITALS: BP 128/86; PULSE 77; O2SAT 98
== END 2023-03-06 09:26 | disposition home or self-care (01) ==
PROVIDERS: Emergency Provider Emergency Medicine; PCP Family Medicine
DX: J10.1 Influenza due to other identified influenza virus with other respiratory manifestations (principal); J10.2 Influenza due to other identified influenza virus with gastrointestinal manifestations; R05.9 Cough, unspecified; R11.2 Nausea with vomiting, unspecified; R19.7 Diarrhea, unspecified; F31.9 Bipolar disorder, unspecified; F43.12 Post-traumatic stress disorder, chronic; F17.290 Nicotine dependence, other tobacco product, uncomplicated
CPT/HCPCS: 80048; 85025; 87636; 96361; 96374; 99284; J2405

== ENCOUNTER 2023-05-23 08:31 | Emergency (ER) | payer SELFPAY ==
[2023-05-23 08:40] VITALS: BP 131/84; PULSE 125; RESP 18; TEMP 37.2; O2SAT 99; BMI 43.2
--- NOTE | 2023-05-23 08:46 | ED_ITS ---
Discharge Plan Disposition Patient Disposition: Home, Self-Care Condition: Good Prescriptions Prescriptions: New azithromycin 500 mg tablet 500 mg PO DAILY 5 Days Qty: 5 0RF Referrals Follow up/Referrals: Viktor Bentley MD [Primary Care Provider] - See instructions Clinical Impressions Clinical Impression: Strep pharyngitis Instructions Patient Instructions: DI for Strep Throat Discharge [place] Provider[place] [facility] [place] General Stated complaint: vomiting, sore throat, dizzy Time Seen by Provider: 05/23/23 08:45 History of Present Illness Provider Complaint: Pt reports that he has a co-worker that recently had a s tomach bug. He reports that he started vomiting last night and vomited about 10 times. He reports that he drank a pot of coffee and vomited again. He reports that his throat is very sore and he does not feel well in general. He reports that he has had a child in the hospital for the last month and feels as if he may have gotten something while at the hospital. Related Data Previous Rx's Medication Instructions Recorded azithromycin 500 mg tablet 500 mg PO DAILY 5 days #5 tabs 05/23/23 Allergies Allergy/AdvReac Type Severity Reaction Status Date / Time amoxicillin Allergy Verified 03/09/23 09:25 Penicillins Allergy Verified 03/09/23 09:25 red dye Allergy Verified 03/09/23 09:25 [facility] Disclaimer: The information contained in this section may have been updated after the patient was seen, as this information can be updated by other users. Medical History Bipolar I disorder Fatigue Nightmares associated with chronic post-traumatic stress disorder Surgical History History of placement of ear tubes History of tonsillectomy History of wisdom tooth extraction, class IV edentulism Family History Other Family history of aneurysm Family history of cancer Social History Smoking Status: Current every day smoker tobacco type: e-cigarettes smoking status stop date: 05/08/20 alcohol intake: current substance use type: former substance user and marijuana current occupational status: employed Travel in the last 8 weeks: None household members: family housing: house number of children: 4 education level: college caffeine: Yes special pancho needs: No do you feel safe at home: Yes victim of physical abuse: No victim of emotional abuse: No victim of sexual abuse: No would you like helpful sources: No ROS Obtained: Yes All systems reviewed & no additional complaints except as documented Constitutional Constitutional: Reports system reviewed and no additional complaints, except as documented and Reports malaise Eyes Eyes: Reports system reviewed and no additional complaints, except as documented ENT Ears, Nose, Mouth, and Throat: Reports system reviewed and no additional complaints, except as documented, Reports odynophagia and Reports sore throat Cardiovascular Cardiovascular: Reports system reviewed and no additional complaints, except as documented Respiratory Respiratory: Reports system reviewed and no additional complaints, except as documented Gastrointestinal Gastrointestingal: Reports system reviewed and no additional complaints, except as documented and odynophagia Genitourinary Male Genitourinary: Reports system reviewed and no additional complaints, except as documented Musculoskeletal Musculoskeletal: Reports system reviewed and no additional complaints, except as documented Integumentary/Breasts Skin/Breast: Reports system reviewed and no additional complaints, except as documented Neurologic Neurologic: Reports system reviewed and no additional complaints, except as documented Endocrine Endocrine: Reports system reviewed and no additional complaints, except as documented Hematologic/Lymphatic Henatologic/Lymphatic: Reports system reviewed and no additional complaints, except as documented Allergic/Immunologic Allergic/Immunologic: Reports system reviewed and no additional complaints, except as documented Physical Exam General General appearance: alert Comment: ill appearing Head Head exam: atraumatic and normocephalic Eye Eye exam: Present normal appearance Expanded ENT Exam External ear exam: Present normal external inspection Nasal speculum exam: Bilateral: normal Mouth exam: Present normal external inspection and tongue normal Teeth exam: Present normal inspection Throat exam: Present tonsillar erythema Neck Neck exam: Present normal inspection Chest Chest inspection: Present normal inspection and symmetric chest wall rise Respiratory Respiratory exam: Present normal lung sounds bilaterally Cardiovascular Cardiovascular exam: Present regular rate and normal rhythm Abdominal Exam Abdominal exam: Present soft and normal bowel sounds Extremities Exam Extremities exam: Present normal inspection Back Exam Back exam: Present normal inspection Neurological Exam Neurological exam: Present alert and oriented X3 Psychiatric Psychiatric exam: Present normal affect and normal mood Skin Skin exam: Present warm, dry and intact Lymphatic Lymphatic Findings: no adenopathy Medical Decision Making Aakash Inquiry Pt receiving controlled substance: No Aakash was queried for this patient: No
[2023-05-23 08:59] VITALS: BP 131/84; PULSE 125; RESP 18; TEMP 37.2; O2SAT 99
[2023-05-23 09:00] LABS: UTC Influenza A Antigen Negative (Negative); UTC Influenza B Antigen Negative (Negative); UTC Strep Screen (Rapid) Positive (Negative)
--- NOTE | 2023-05-23 09:13 | ED_ITS ---
Discharge Plan Disposition Patient Disposition: Home, Self-Care Condition: Good Prescriptions Prescriptions: New azithromycin 500 mg tablet 500 mg PO DAILY 5 Days Qty: 5 0RF Referrals Follow up/Referrals: Viktor Bentley MD [Primary Care Provider] - See instructions Clinical Impressions Clinical Impression: Strep pharyngitis Stand Alone Forms Stand Alone Forms: Work/School Release Instructions Patient Instructions: DI for Strep Throat Discharge ED Provider: Michelle Kunz [facility] [place] HPI General Stated complaint: vomiting, sore throat, dizzy Mode of Arrival: Ambulatory Source of Information: Patient Limitations: No Limitations Time Seen by Provider: 05/23/23 08:45 Description of Symptoms (Recalled from Triage Doc. by RN): PATIENT C/O DIZZINESS, VOMITING, SORE THROAT, BODY ACHES, AND CHILLS SINCE LAST NIGHT HEENT Symptoms (Recalled from RN notes): Yes Resp Symptoms (Recalled from RN notes): No Skin Symptoms (Recalled from RN notes): No MS Symptoms (Recalled from RN notes): No Functional Status (Recalled from RN notes): WNL Related Data Previous Rx's Medication Instructions Recorded azithromycin 500 mg tablet 500 mg PO DAILY 5 days #5 tabs 05/23/23 Allergies Allergy/AdvReac Type Severity Reaction Status Date / Time amoxicillin Allergy Verified 03/09/23 09:25 Penicillins Allergy Verified 03/09/23 09:25 red dye Allergy Verified 03/09/23 09:25 Worker's Comp Is this a Worker's Comp case?: No [facility] Disclaimer: The information contained in this section may have been updated after the patient was seen, as this information can be updated by other users. Medical History Bipolar I disorder Fatigue Nightmares associated with chronic post-traumatic stress disorder Surgical History History of placement of ear tubes History of tonsillectomy History of wisdom tooth extraction, class IV edentulism Family History Other Family history of aneurysm Family history of cancer Social History Smoking Status: Current every day smoker tobacco type: e-cigarettes smoking status stop date: 05/08/20 alcohol intake: current substance use type: former substance user and marijuana current occupational status: employed Travel in the last 8 weeks: None household members: family housing: house number of children: 4 education level: college caffeine: Yes special pancho needs: No do you feel safe at home: Yes victim of physical abuse: No victim of emotional abuse: No victim of sexual abuse: No would you like helpful sources: No ROS Obtained: Yes All systems reviewed & no additional complaints except as documented Constitutional Constitutional: Reports system reviewed and no additional complaints, except as documented and Reports malaise Eyes Eyes: Reports system reviewed and no additional complaints, except as documented ENT Ears, Nose, Mouth, and Throat: Reports system reviewed and no additional compl aints, except as documented, Reports odynophagia and Reports sore throat Cardiovascular Cardiovascular: Reports system reviewed and no additional complaints, except as documented Respiratory Respiratory: Reports system reviewed and no additional complaints, except as documented Gastrointestinal Gastrointestingal: Reports system reviewed and no additional complaints, except as documented and odynophagia Genitourinary Male Genitourinary: Reports system reviewed and no additional complaints, except as documented Musculoskeletal Musculoskeletal: Reports system reviewed and no additional complaints, except as documented Integumentary/Breasts Skin/Breast: Reports system reviewed and no additional complaints, except as documented Neurologic Neurologic: Reports system reviewed and no additional complaints, except as documented Endocrine Endocrine: Reports system reviewed and no additional complaints, except as documented Hematologic/Lymphatic Henatologic/Lymphatic: Reports system reviewed and no additional complaints, except as documented Allergic/Immunologic Allergic/Immunologic: Reports system reviewed and no additional complaints, except as documented Physical Exam General General appearance: alert Comment: ill appearing Head Head exam: atraumatic and normocephalic Eye Eye exam: Present normal appearance Expanded ENT Exam External ear exam: Present normal external inspection Nasal speculum exam: Bilateral: normal Mouth exam: Present normal external inspection and tongue normal Teeth exam: Present normal inspection Throat exam: Present tonsillar erythema Neck Neck exam: Present normal inspection Chest Chest inspection: Present normal inspection and symmetric chest wall rise Respiratory Respiratory exam: Present normal lung sounds bilaterally Cardiovascular Cardiovascular exam: Present regular rate and normal rhythm Abdominal Exam Abdominal exam: Present soft and normal bowel sounds Extremities Exam Extremities exam: Present normal inspection Back Exam Back exam: Present normal inspection Neurological Exam Neurological exam: Present alert and oriented X3 Psychiatric Psychiatric exam: Present normal affect and normal mood Skin Skin exam: Present warm, dry and intact Lymphatic Lymphatic Findings: no adenopathy Medical Decision Making Aakash Inquiry Pt receiving controlled substance: No Aakash was queried for this patient: No Vital Signs: 05/23/23 08:40 05/23/23 08:59 Temperature 98.9 F 98.9 F Temperature Source Oral Pulse Rate 125 H Pulse Rate [Left Brachial] 125 H Respiratory Rate 18 18 Blood Pressure 131/84 Blood Pressure [Left Arm] 131/84 Blood Pressure Mean [Left Arm] 99 Blood Pressure Source [Left Arm] Automatic Cuff Blood Pressure Position [Left Arm] Sitting 02 Sat by Pulse Oximetry 99 Oxygen Delivery Method Room Air Lab Data Lab results reviewed: Yes I reviewed the patient's lab results. Lab Results 05/23/23 08:59: Influenza Type A Ag Negative, Influenza Type B Ag Negative, Strep Scn Rapid Clinic Positive A
== END 2023-05-23 09:10 | disposition home or self-care (01) ==
PROVIDERS: Emergency Provider Nurse Practitioner Family; PCP Family Medicine
DX: J02.0 Streptococcal pharyngitis (principal); R07.0 Pain in throat; F17.290 Nicotine dependence, other tobacco product, uncomplicated
CPT/HCPCS: 87804; 87880; 99212; 99214; G0463

== ENCOUNTER 2023-06-11 17:33 | Emergency (ER) | payer SELFPAY ==
[2023-06-11 17:45] VITALS: BP 138/94; PULSE 80; RESP 20; TEMP 36.8; O2SAT 99; BMI 43.4
--- NOTE | 2023-06-11 18:16 | EXP.UTC ---
Discharge Plan Disposition Patient Disposition: Home, Self-Care Condition: Good Prescriptions Prescriptions: New ibuprofen [IBU] 800 mg tablet 800 mg PO TIDP PRN (Reason: Moderate Pain) Qty: 20 0RF cyclobenzaprine 10 mg tablet 10 mg PO TID PRN (Reason: muscle spasm) Qty: 12 0RF Referrals Follow up/Referrals: Viktor Bentley MD [Primary Care Provider] - See instructions Activity Restrictions/Add. Instructions Additional Instructions/Restrictions: *Ibuprofen kenneth 8 hours with meal as needed for pain/inflammation *Remember you had a Toradol shot in the clinic today, which is similar to Motrin so do not start Ibuprofen until tomorrow *Not additional anti-inflammatory like motrin, aleve, advil with the above amount of ibuprofen. You can still take Tylenol every 4 hours as needed if you need something else for pain *Ice 20 minutes every 2 hours for the first 48 hours after the initial injury followed by moist heat every 20 minutes 3-4 times a day to affected area *Muscle relaxer every 8 hours as needed for muscle spasms but remember, it WILL cause drowsiness You cannot take it and drive, Work operate machinery or care for small children. *Keep this area active, no movement leads to more stiffness, However take it easy and avoid heavy lifting pushing or pulling *Follow up with you family doctor if no improvement for further treatment Clinical Impressions Clinical Impression: Low back pain Qualifiers: Chronicity: unspecified Back pain laterality: bilateral Sciatica presence: without sciatica Qualified Code(s): M54.50 - Low back pain, unspecified Stand Alone Forms Stand Alone Forms: Work/School Release Instructions Patient Instructions: Low Back Pain, Ibuprofen, Cyclobenzaprine Discharge ED Provider: Kerline Talley [facility] General Stated complaint: back pain Mode of Arrival: Ambulatory Source of Information: Patient Limitations: No Limitations Time Seen by Provider: 06/11/23 18:16 Description of Symptoms (Recalled from Triage Doc. by RN): PATIENT C/O MIDDLE BACK PAIN SINCE THURSDAY. HE STATES HE THINKS HE PULLED A MUSCLE HEENT Symptoms (Recalled from RN notes): No Resp Symptoms (Recalled from RN notes): No Skin Symptoms (Recalled from RN notes): No MS Symptoms (Recalled from RN notes): Yes Functional Status (Recalled from RN notes): WNL History of Present Illness Provider Complaint: Patient states that he was lifting at work on Thursday and felt something pull in his lower back area States since he has been having pain and spasms and felt like he pulled something in his lower back and worse with movement and having spasms so he came in to get something to help Denies loss of control of bowel or bladder Related Data Previous Rx's Medication Instructions Recorded cyclobenzaprine 10 mg tablet 10 mg PO TID PRN muscle spasm #12 06/11/23 tabs ibuprofen 800 mg tablet (IBU) 800 mg PO TIDP PRN Moderate Pain 06/11/23 #20 tabs Allergies Allergy/AdvReac Type Severity Reaction Status Date / Time amoxicillin Allergy Verified 03/09/23 09:25 Penicillins Allergy Verified 03/09/23 09:25 red dye Allergy Verified 03/09/23 09:25 Worker's Comp Is this a Worker's Comp case?: No [facility] Disclaimer: The information contained in this section may have been updated after the patient was seen, as this information can be updated by other users. Medical History Bipolar I disorder Fatigue Nightmares associated with chronic post-traumatic stress disorder Surgical History History of placement of ear tubes History of tonsillectomy History of wisdom tooth extraction, class IV edentulism Family History Other Family history of aneurysm Family history of cancer Social History Smoking Status: Current every day smoker tobacco type: e-cigarettes smoking status stop date: 05/08/20 alcohol intake: current substance use type: former substance user and marijuana current occupational status: employed Travel in the last 8 weeks: None household members: family housing: house number of children: 4 education level: college caffeine: Yes special pancho needs: No do you feel safe at home: Yes victim of physical abuse: No victim of emotional abuse: No victim of sexual abuse: No would you like helpful sources: No ROS Obtained: Yes All systems reviewed & no additional complaints except as documented and Yes Systems reviewed as appropriate & no additional complaints except as documented Constitutional Constitutional: Reports system reviewed and no additional complaints, except as documented and Reports as per HPI Cardiovascular Cardiovascular: Reports system reviewed and no additional complaints, except as documented and Reports as per HPI Respiratory Respiratory: Reports system reviewed and no additional complaints, except as documented and Reports as per HPI Gastrointestinal Gastrointestingal: Reports system reviewed and no additional complaints, except as documented and as per HPI Musculoskeletal Musculoskeletal: Reports system reviewed and no additional complaints, except as documented, Reports as per HPI and Reports back pain Physical Exam General General appearance: alert and in no apparent distress ENT ENT exam: Present mucous membranes moist Respiratory Respiratory exam: Present normal lung sounds bilaterally; Absent respiratory distress or wheezes Cardiovascular Cardiovascular exam: Present regular rate, normal rhythm and normal heart sounds Back Exam Back exam: Present tenderness and muscle spasm Back 1 view image: 1. reports spasm like pain that is worse with movement Denies radiation of pain denies loss of control of bowel or bladder States pain started after lifting something heavy on Thursday and feeling something pull in his lower back Neurological Exam Neurological exam: Present alert, oriented X3 and normal gait Medical Decision Making Aakash Inquiry Pt receiving controlled substance: No Aakash was queried for this patient: No Vital Signs: 06/11/23 17:45 Temperature 98.2 F Temperature Source Oral Pulse Rate [Right Brachial] 80 Respiratory Rate 20 Blood Pressure [Right Arm] 138/94 H Blood Pressure Mean [Right Arm] 108 Blood Pressure Source [Right Arm] Automatic Cuff Blood Pressure Position [Right Arm] Sitting 02 Sat by Pulse Oximetry 99 Oxygen Delivery Method Room Air Orders (Tests/Meds): ORDERS Category Date Time Status Lumbar spine minimum 4 views [XR lumbar spine min 4V] Exams 06/11/23 18:15 Ordered Stat Medical Decision Narrative: Recommended xray of Lspine and patient declined Patient aware of risks and still declined xray states just wants medication to help it Patient reports pain in lower back better after medication patient dc'd home with strict return precautions
[2023-06-11] MEDS: METHYLPREDNISOLONE SOD SUCC 125MG VIAL 125 MG IM (18:30)
[2023-06-11] MEDS: KETOROLAC 60MG/2ML VIAL 60 MG IM (18:30)
[2023-06-11 18:37] VITALS: BP 138/94; PULSE 80; RESP 20; TEMP 36.8; O2SAT 99
== END 2023-06-11 18:56 | disposition home or self-care (01) ==
PROVIDERS: Emergency Provider Nurse Practitioner; PCP Family Medicine
DX: M54.50 Low back pain, unspecified (principal); M62.830 Muscle spasm of back; F17.290 Nicotine dependence, other tobacco product, uncomplicated; X50.0XXA Overexertion from strenuous movement or load, initial encounter
CPT/HCPCS: 96372; 99212; 99214; G0463

== ENCOUNTER 2023-07-23 11:52 | Emergency (ER) | payer SELFPAY ==
[2023-07-23 12:20] VITALS: BP 133/84; PULSE 81; RESP 19; TEMP 36.6; O2SAT 100; BMI 45.6
--- NOTE | 2023-07-23 12:55 | EXP.UTC ---
Discharge Plan Disposition Patient Disposition: Home, Self-Care Condition: Good Prescriptions Prescriptions: New methocarbamol 750 mg tablet 750 mg PO TID PRN (Reason: muscle spasm) Qty: 12 0RF ibuprofen [IBU] 800 mg tablet 800 mg PO TIDP PRN (Reason: Moderate Pain) Qty: 20 0RF Referrals Follow up/Referrals: Viktor Bentley MD [Primary Care Provider] - See instructions Activity Restrictions/Add. Instructions Additional Instructions/Restrictions: *Ibuprofen kenneth 6 hours with meal as needed for pain/inflammation *Not additional anti-inflammatory like motrin, aleve, advil with the above amount of ibuprofen. You can still take Tylenol every 4 hours as needed if you need something else for pain *Ice 20 minutes every 2 hours for the first 48 hours after the initial injury followed by moist heat every 20 minutes 3-4 times a day to affected area *Muscle relaxer every 8 hours as needed for muscle spasms but remember, it WILL cause drowsiness You cannot take it and drive, operate machinery or care for small children. *Keep this area active, no movement leads to more stiffness, However take it easy and avoid heavy lifting pushing or pulling *Follow up with you family doctor if no improvement for further treatment Clinical Impressions Clinical Impression: Back pain Stand Alone Forms Stand Alone Forms: Work/School Release Instructions Patient Instructions: DI for Muscle Spasm, DI for COVID-19 (Suspected or Confirmed ) Discharge ED Provider: Kerline Talley [facility] HPI General Stated complaint: back pain Mode of Arrival: Ambulatory Source of Information: Patient Limitations: No Limitations Time Seen by Provider: 07/23/23 12:55 Description of Symptoms (Recalled from Triage Doc. by RN): PATIENT C/O PAIN IN UPPER BACK X 2 DAYS, NO KNOWN INJURY. PATIENT IS ALSO REQUESTING A COVID TEST D/T EXPOSURE HEENT Symptoms (Recalled from RN notes): No Resp Symptoms (Recalled from RN notes): No Skin Symptoms (Recalled from RN notes): No MS Symptoms (Recalled from RN notes): Yes Functional Status (Recalled from RN notes): WNL History of Present Illness Provider Complaint: Patient states that he was hammering out a wheelbearing and was using a sledge hammer and over did it and now having muscle spasms in his mid to upper back States that also was around cousin that recently tested positive for COVID and wanted to get tested Related Data Previous Rx's Medication Instructions Recorded ibuprofen 800 mg tablet (IBU) 800 mg PO TIDP PRN Moderate Pain 07/23/23 #20 tabs methocarbamol 750 mg tablet 750 mg PO TID PRN muscle spasm #12 07/23/23 tabs Allergies Allergy/AdvReac Type Severity Reaction Status Date / Time amoxicillin Allergy Verified 03/09/23 09:25 Penicillins Allergy Verified 03/09/23 09:25 red dye Allergy Verified 03/09/23 09:25 Worker's Comp Is this a Worker's Comp case?: No [facility] Disclaimer: The information contained in this section may have been updated after the patient was seen, as this information can be updated by other users. Medical History Bipolar I disorder Fatigue Nightmares associated with chronic post-traumatic stress disorder Surgical History History of placement of ear tubes History of tonsillectomy History of wisdom tooth extraction, class IV edentulism Family History Other Family history of aneurysm Family history of cancer Social History Smoking Status: Current every day smoker tobacco type: e-cigarettes smoking status stop date: 05/08/20 alcohol intake: current substance use type: former substance user and marijuana current occupational status: employed Travel in the last 8 weeks: None household members: family housing: house number of children: 4 education level: college caffeine: Yes special pancho needs: No do you feel safe at home: Yes victim of physical abuse: No victim of emotional abuse: No victim of sexual abuse: No would you like helpful sources: No ROS Obtained: Yes All systems reviewed & no additional complaints except as documented and Yes Systems reviewed as appropriate & no additional complaints except as documented Constitutional Constitutional: Reports system reviewed and no additional complaints, except as documented, Reports as per HPI, Reports body ache and Reports chills ENT Ears, Nose, Mouth, and Throat: Reports system reviewed and no additional complaints, except as documented and Reports as per HPI Cardiovascular Cardiovascular: Reports system reviewed and no additional complaints, except as documented and Reports as per HPI Respiratory Respiratory: Reports system reviewed and no additional complaints, except as documented and Reports as per HPI Gastrointestinal Gastrointestingal: Reports system reviewed and no additional complaints, except as documented and as per HPI Musculoskeletal Musculoskeletal: Reports system reviewed and no additional complaints, except as documented, Reports as per HPI and Reports back pain Integumentary/Breasts Skin/Breast: Reports system reviewed and no additional complaints, except as documented and Reports as per HPI Physical Exam General General appearance: alert and in no apparent distress ENT ENT exam: Present mucous membranes moist Respiratory Respiratory exam: Present normal lung sounds bilaterally; Absent respiratory distress or wheezes Cardiovascular Cardiovascular exam: Present regular rate, normal rhythm and normal heart sounds Back Exam Back exam: Present tenderness and muscle spasm Back 1 view image: 1. reports feeling of tightness and spasms Denies loss of control of bowel or bladder Neurological Exam Neurological exam: Present alert, oriented X3 and normal gait Medical Decision Making Aakash Inquiry Pt receiving controlled substance: No Aakash was queried for this patient: No Vital Signs: 07/23/23 12:20 Temperature 97.8 F Temperature Source Oral Pulse Rate [Left Brachial] 81 Respiratory Rate 19 Blood Pressure [Left Arm] 133/84 Blood Pressure Mean [Left Arm] 100 Blood Pressure Source [Left Arm] Automatic Cuff Blood Pressure Position [Left Arm] Sitting 02 Sat by Pulse Oximetry 100 Oxygen Delivery Method Room Air Orders (Tests/Meds): ORDERS Category Date Time Status Covid-19 Nasal PCR ([facility]) Routine Lab 07/23/23 12:20 Received Medical Decision Narrative: Discussed xray and patient declined
[2023-07-23 13:14] VITALS: BP 133/84; PULSE 81; RESP 19; TEMP 36.6; O2SAT 100
== END 2023-07-23 13:18 | disposition home or self-care (01) ==
PROVIDERS: Emergency Provider Nurse Practitioner; PCP Family Medicine
DX: M54.6 Pain in thoracic spine (principal); F17.290 Nicotine dependence, other tobacco product, uncomplicated; Z20.822 Contact with and (suspected) exposure to COVID-19
CPT/HCPCS: 87635; 99212; 99214; G0463

== ENCOUNTER 2023-08-28 13:09 | Emergency (ER) | payer SELFPAY ==
[2023-08-28 13:20] VITALS: BP 143/87; PULSE 80; RESP 20; TEMP 36.8; O2SAT 99; BMI 45.1
--- NOTE | 2023-08-28 13:32 | ED_ITS ---
Discharge Plan Disposition Patient Disposition: Home, Self-Care Condition: Good Referrals Follow up/Referrals: Viktor Bentley MD [Primary Care Provider] - See instructions Activity Restrictions/Add. Instructions Additional Instructions/Restrictions: *Monitor Temp, Over the counter Motrin or Tylenol as directed/as needed Tylenol every 4 hours and Motrin every 6 hours (as long as your family doctor has told you that you can take it) for fever or pain. and straight to ER if unable to lower temp less than 101.0 after medication given Sleep elevated *Humidifier/Vaporizer Follow up IMMEDIATELY for new or worsening symptoms or no Noticeable improvement over the next 48-72 hours. 911 for difficulty breathing or swallowing You were tested for today for COVID19 your test result should be back in the next 24hours, you may check your results on the [facility] [employer] [facility] portal Clinical Impressions Clinical Impression: Exposure to COVID-19 virus Stand Alone Forms Stand Alone Forms: Work/School Release Instructions Patient Instructions: COVID-19 Viral Test, Coronavirus Disease 2019 Discharge ED Provider: Kerline Talley [facility] [place] HPI General Stated complaint: sore throat, cough, congestion, exp to covid Mode of Arrival: Ambulatory Source of Information: Patient Limitations: No Limitations Time Seen by Provider: 08/28/23 13:32 Description of Symptoms (Recalled from Triage Doc. by RN): PATIENT IS NEEDING A COVID TEST FOR WORK. HE STATES HIS MOTHER WHO HE CARES FOR TESTED POSITIVE THIS MORNING. 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 and she got really sick last night and got her test results came back this morning and she was positive for COVID so his work is making him come in and get tested before he can return Related Data Allergies Allergy/AdvReac Type Severity Reaction Status Date / Time amoxicillin Allergy Verified 03/09/23 09:25 Penicillins Allergy Verified 03/09/23 09:25 red dye Allergy Verified 03/09/23 09:25 Worker's Comp Is this a Worker's Comp case?: No [facility] Disclaimer: The information contained in this section may have been updated after the patient was seen, as this information can be updated by other users. Medical History Bipolar I disorder Fatigue Nightmares associated with chronic post-traumatic stress disorder Surgical History History of placement of ear tubes History of tonsillectomy History of wisdom tooth extraction, class IV edentulism Family History Other Family history of aneurysm Family history of cancer Social History Smoking Status: Current every day smoker tobacco type: e-cigarettes smoking status stop date: 05/08/20 alcohol intake: current alcohol intake frequency: 0-2 drinks per day substance use type: former substance user and marijuana current occupational status: employed Travel in the last 8 weeks: None household members: family housing: house number of children: 4 education level: college caffeine: Yes special pancho needs: No do you feel safe at home: Yes victim of physical abuse: No victim of emotional abuse: No victim of sexual abuse: No would you like helpful sources: No ROS Obtained: Yes All systems reviewed & no additional complaints except as documented and Yes Systems reviewed as appropriate & no additional complaints except as documented Constitutional Constitutional: Reports system reviewed and no additional complaints, except as documented and Reports as per HPI Eyes Eyes: Reports system reviewed and no additional complaints, except as documented and Reports as per HPI ENT Ears, Nose, Mouth, and Throat: Reports system reviewed and no additional complaints, except as documented, Reports as per HPI, Reports nasal congestion and Reports nasal discharge Cardiovascular Cardiovascular: Reports system reviewed and no additional complaints, except as documented and Reports as per HPI Respiratory Respiratory: Reports system reviewed and no additional complaints, except as documented, Reports as per HPI and Reports cough Gastrointestinal Gastrointestingal: Reports system reviewed and no additional complaints, except as documented and as per HPI Musculoskeletal Musculoskeletal: Reports system reviewed and no additional complaints, except as documented and Reports as per HPI Physical Exam General General appearance: alert and in no apparent distress ENT ENT exam: Present mucous membranes moist Expanded ENT Exam Nose exam: Absent sinus tenderness Throat exam: Present normal inspection Respiratory Respiratory exam: Present normal lung sounds bilaterally; Absent respiratory distress or wheezes Cardiovascular Cardiovascular exam: Present regular rate, normal rhythm and normal heart sounds Abdominal Exam Abdominal exam: Present soft and normal bowel sounds; Absent distention, tenderness or guarding Neurological Exam Neurological exam: Present alert, oriented X3 and normal gait Medical Decision Making Aakash Inquiry Pt receiving controlled substance: No Aakash was queried for this patient: No Vital Signs: 08/28/23 13:20 Temperature 98.3 F Temperature Source Oral Pulse Rate [Left Brachial] 80 Respiratory Rate 20 Blood Pressure [Left Arm] 143/87 H Blood Pressure Mean [Left Arm] 105 Blood Pressure Source [Left Arm] Automatic Cuff Blood Pressure Position [Left Arm] Sitting 02 Sat by Pulse Oximetry 99 Oxygen Delivery Method Room Air
[2023-08-28 13:42] VITALS: BP 143/87; PULSE 80; RESP 20; TEMP 36.8; O2SAT 99
[2023-08-28 14:17] LABS: Coronavirus 19, PCR Not Detected (NotDetected); Influenza A, PCR Not Detected (NotDetected); Influenza B, PCR Not Detected (NotDetected)
== END 2023-08-28 13:44 | disposition home or self-care (01) ==
PROVIDERS: Emergency Provider Nurse Practitioner; PCP Family Medicine
DX: R05.9 Cough, unspecified (principal); R09.81 Nasal congestion; R07.0 Pain in throat; Z20.822 Contact with and (suspected) exposure to COVID-19
CPT/HCPCS: 87636; 99212; 99213; G0463

== ENCOUNTER 2023-12-02 08:37 | Emergency (ER) | payer SELFPAY ==
[2023-12-02 08:39] VITALS: BP 114/86; PULSE 65; RESP 16; TEMP 36.6; O2SAT 96; BMI 38.6
--- NOTE | 2023-12-02 08:41 | HMH.EDGENADL ---
Discharge Plan Disposition Patient Disposition: Home, Self-Care Referrals Follow up/Referrals: Viktor Bentley MD [Primary Care Provider] - See instructions Activity Restrictions/Add. Instructions Additional Instructions/Restrictions: Follow-up results of COVID swab. Take Tylenol and ibuprofen as needed for symptoms. Take Zofran as needed for nausea and vomiting. Please return the emergency room for any new, concerning, worsening symptoms. Clinical Impressions Clinical Impression: Viral syndrome Instructions Patient Instructions: Common Cold Print Language Print Language: Citizen Of [place] Discharge ED Provider: Manohar Paniagua General Adult HPI General Chief complaint: Upper Respiratory Infection Stated complaint: vomiting, loss of smell, sweats Time Seen by Provider: 12/02/23 08:40 Mode of Arrival: Ambulatory Source of Information: Patient History of Present Illness HPI narrative: This is a 33-year-old male with no significant past medical history who presents with request for COVID swab. States that he has had fever, cough, chills, body aches for the last couple days. States that his mother just tested positive for COVID. States that he has small children at home and would just like to know if he has or not. Denies any shortness of breath or chest pain. Does not desire any further workup. Has been managing symptoms at home with Tylenol, ibuprofen, and Zofran. Related Data Allergies Allergy/AdvReac Type Severity Reaction Status Date / Time amoxicillin Allergy Verified 03/09/23 09:25 Penicillins Allergy Verified 03/09/23 09:25 red dye Allergy Verified 03/09/23 09:25 [facility] Disclaimer: The information contained in this section may have been updated after the patient was seen, as this information can be updated by other users. Medical History Bipolar I disorder Fatigue Nightmares associated with chronic post-traumatic stress disorder Surgical History History of placement of ear tubes History of tonsillectomy History of wisdom tooth extraction, class IV edentulism Family History Other Family history of aneurysm Family history of cancer Social History Smoking Status: Current every day smoker tobacco type: e-cigarettes smoking status stop date: 05/08/20 alcohol intake: current alcohol intake frequency: 0-2 drinks per day substance use type: former substance user and marijuana current occupational status: employed Travel in the last 8 weeks: None household members: family housing: house number of children: 4 education level: college caffeine: Yes special pancho needs: No do you feel safe at home: Yes victim of physical abuse: No victim of emotional abuse: No victim of sexual abuse: No would you like helpful sources: No ROS Obtained: Yes All systems reviewed & no additional complaints except as documented Physical Exam General General appearance: alert and in no apparent distress Eye Eye exam: Present normal appearance, PERRL and EOMI Respiratory Respiratory exam: Present normal lung sounds bilaterally; Absent respiratory distress Cardiovascular Cardiovascular exam: Present regular rate and normal rhythm Abdominal Exam Abdominal exam: Present soft and distention; Absent tenderness, guarding or rebound Extremities Exam Extremities exam: Present normal inspection Neurological Exam Neurological exam: Present alert and oriented X3 Skin Skin exam: Present warm and dry Medical Decision Making Medical Records Medical records reviewed: Yes I reviewed the patient's medical records. Aakash Inquiry Pt receiving controlled substance: No Vital Signs: 12/02/23 08:39 Temperature 97.8 F Temperature Source Oral Pulse Rate [Radial] 65 Respiratory Ra
[2023-12-02 08:57] VITALS: BP 114/86; PULSE 67; RESP 16; TEMP 36.7; O2SAT 95
[2023-12-02 08:57] LABS: Influenza A, PCR Not Detected (NotDetected); Influenza B, PCR Not Detected (NotDetected)
[2023-12-02 09:51] LABS: Coronavirus 19, PCR Detected (NotDetected)
== END 2023-12-02 08:58 | disposition home or self-care (01) ==
PROVIDERS: Emergency Provider Student in an Organized Health Care Education/Training Program; PCP Family Medicine
DX: U07.1 COVID-19 (principal); R11.2 Nausea with vomiting, unspecified; R50.9 Fever, unspecified; R05.9 Cough, unspecified
CPT/HCPCS: 87636; 99283

== ENCOUNTER 2024-05-01 17:48 | Emergency (ER) | payer OTHER, SELFPAY ==
[2024-05-01 18:05] VITALS: BP 127/75; PULSE 84; RESP 20; TEMP 36.6; O2SAT 98; BMI 39.2
[2024-05-01 18:16] LABS: UTC Influenza A Antigen Negative (Negative); UTC Influenza B Antigen Negative (Negative)
--- NOTE | 2024-05-01 18:27 | EXP.UTC ---
Discharge Plan Disposition Patient Disposition: Home, Self-Care Condition: Good Prescriptions Prescriptions: New promethazine 25 mg tablet 25 mg PO TID PRN (Reason: nausea and vomiting) Qty: 12 0RF Referrals Follow up/Referrals: Viktor Bentley MD [Primary Care Provider] - See instructions Activity Restrictions/Add. Instructions Additional Instructions/Restrictions: Take medication as prescribed. Increase fluids and rest. Follow up with PCP if symptoms persist or worsen. Clinical Impressions Clinical Impression: Viral gastroenteritis Stand Alone Forms Stand Alone Forms: Work/School Release Instructions Patient Instructions: DI for Viral Gastroenteritis -- Adult Print Language Print Language: Cam[place] Discharge ED Provider: Michelle Kunz [facility] [place] HPI General Stated complaint: diarrhea, vomiting Mode of Arrival: Ambulatory Source of Information: Patient Time Seen by Provider: 05/01/24 18:26 Description of Symptoms (Recalled from Triage Doc. by RN): N/V/D, CHILLS, FEVER (101), BA HEENT Symptoms (Recalled from RN notes): No Resp Symptoms (Recalled from RN notes): No Skin Symptoms (Recalled from RN notes): No MS Symptoms (Recalled from RN notes): No Functional Status (Recalled from RN notes): WNL History of Present Illness Provider Complaint: Pt reports that his mom and have similar symptoms. He states that he has had diarrhea several times today and has vomited about every 3 hours. He reports that he took the last 4mg of Zofran, but this did not help. Related Data Previous Rx's ?Medication ?Instructions ?Recorded promethazine 25 mg tablet 25 mg PO TID PRN nausea and 05/01/24 vomiting #12 tabs Allergies Allergy/AdvReac Type Severity Reaction Status Date / Time amoxicillin Allergy Verified 03/09/23 09:25 Penicillins Allergy Verified 03/09/23 09:25 red dye Allergy Verified 03/09/23 09:25 Worker's Comp Is this a Worker's Comp case?: No [facility] Disclaimer: The information contained in this section may have been updated after the patient was seen, as this information can be updated by other users. Medical History Bipolar I disorder Fatigue Nightmares associated with chronic post-traumatic stress disorder Surgical History History of placement of ear tubes History of tonsillectomy History of wisdom tooth extraction, class IV edentulism Family History Other Family history of aneurysm Family history of cancer Social History Smoking Status: Current every day smoker tobacco type: e-cigarettes smoking status stop date: 05/08/20 alcohol intake: current alcohol intake frequency: 0-2 drinks per day substance use type: former substance user and marijuana current occupational status: employed Travel in the last 8 weeks: None household members: family housing: house number of children: 4 education level: college caffeine: Yes special pancho needs: No do you feel safe at home: Yes victim of physical abuse: No victim of emotional abuse: No victim of sexual abuse: No would you like helpful sources: No Have you lived/traveled outside [place] in past 30 days?: No Contact w/someone who lives/traveled outside US past 30 days?: No Exposure to someone with infectious disease in past 14 days?: Yes Do you have a fever (greater than 100.4 F or 38 C)?: No Have you tested positive for COVID-19: No Exposed to someone with COVID-19 in past 14 days?: No Do you have a sore throat?: No Do you have a cough?: No Do you have any weakness?: No Do you have any diarrhea?: Yes Are you experiencing any unusual bleeding?: No Do you have any muscle aches/pain?: No Do you have any abdominal pain?: Yes Are you experiencing loss of taste or smell?: No ROS Obtained: Yes All systems reviewed & no additional complaints except as documented Constitutional Constitutional: Reports system reviewed and no additional complaints, except as documented and Reports malaise Eyes Eyes: Reports system reviewed and no additional complaints, except as documented ENT Ears, Nose, Mouth, and Throat: Reports system reviewed and no additional complaints, except as documented Cardiovascular Cardiovascular: Reports system reviewed and no additional complaints, except as documented Respiratory Respiratory: Reports system reviewed and no additional complaints, except as documented Gastrointestinal Gastrointestingal: Reports system reviewed and no additional complaints, except as documented, cramping, diarrhea, nausea and vomiting Genitourinary Male Genitourinary: Reports system reviewed and no additional complaints, except as documented Musculoskeletal Musculoskeletal: Reports system reviewed and no additional complaints, except as documented Integumentary/Breasts Skin/Breast: Reports system reviewed and no additional complaints, except as documented Neurologic Neurologic: Reports system reviewed and no additional complaints, except as documented Endocrine Endocrine: Reports system reviewed and no additional complaints, except as documented Hematologic/Lymphatic Henatologic/Lymphatic: Reports system reviewed and no additional complaints, except as documented Allergic/Immunologic Allergic/Immunologic: Reports system reviewed and no additional complaints, except as documented Physical Exam General General appearance: alert Comment: ill appearing Head Head exam: atraumatic and normocephalic Eye Eye exam: Present normal appearance ENT ENT exam: Present normal exam, normal oropharynx and mucous membranes moist Neck Neck exam: Present normal inspection Chest Chest inspection: Present normal inspection and symmetric chest wall rise Respiratory Respiratory exam: Present normal lung sounds bilaterally Cardiovascular Cardiovascular exam: Present regular rate, normal rhythm and normal heart sounds Abdominal Exam Abdominal exam: Present soft, tenderness and hyperactive bowel sounds Abdominal tenderness: Present epigastrium and mild Extremities Exam Extremities exam: Present normal inspection Back Exam Back exam: Present normal inspection Neurological Exam Neurological exam: Present alert and oriented X3 Psychiatric Psychiatric exam: Present normal affect and normal mood Skin Skin exam: Present warm, dry and intact Lymphatic Lymphatic Findings: no adenopathy Medical Decision Making Medical Records Screening: Per USPSTF and CDC recommendations, given the prevalence of disease in our region, it is our hospital?s policy to screen for HIV and viral Hepatitis for all patients aged 18 and over and those with ongoing risk factors. Aakash Inquiry Pt receiving controlled substance: No Aakash was queried for this patient: No Vital Signs: 05/01/24 18:05 Temperature 97.8 F Temperature Source Oral Pulse Rate [Left Radial] 84 Respiratory Rate 20 Blood Pressure [Left Arm] 127/75 Blood Pressure Mean [Left Arm] 92 02 Sat by Pulse Oximetry 98 Lab Data Lab results reviewed: Yes I reviewed the patient's lab results. Lab Results 05/01/24 18:03: Influenza Type A Ag Negative, Influenza Type B Ag Negative
[2024-05-01 18:49] VITALS: BP 127/75; PULSE 84; RESP 20; TEMP 36.6
== END 2024-05-01 18:56 | disposition home or self-care (01) ==
PROVIDERS: Emergency Provider Nurse Practitioner Family; PCP Family Medicine
DX: A08.4 Viral intestinal infection, unspecified (principal)
CPT/HCPCS: 87804; 99212; G0381

== ENCOUNTER 2024-05-08 16:04 | Emergency (ER) | payer OTHER, SELFPAY ==
[2024-05-08 16:09] VITALS: BP 142/94; PULSE 117; RESP 18; TEMP 38; O2SAT 95; BMI 38.0
[2024-05-08 16:36] LABS: Coronavirus 19, PCR Not Detected (NotDetected); Influenza B, PCR Not Detected (NotDetected)
--- NOTE | 2024-05-08 16:57 | CT_ITS ---
PROCEDURE INFORMATION: Exam: CT Lumbar Spine Without Contrast Exam date and time: 05/08/2024 5:20 PM Age: 33 years old Clinical indication: Low back pain; Additional info: Trauma, midline L spine ttp TECHNIQUE: Imaging protocol: Computed tomography of the lumbar spine without contrast. Radiation optimization: All CT scans at this facility use at least one of these dose optimization techniques: automated exposure control; mA and/or kV adjustment per patient size (includes targeted exams where dose is matched to clinical indication); or iterative reconstruction. COMPARISON: CR XR LUMBAR SPINE 2-3V 09/09/2021 10:58 AM FINDINGS: Bones/joints: Lumbar vertebrae normal in height. No acute fracture. Minimal anterolisthesis L5 on S1. No significant disc bulge or herniation. Varying degrees of facet arthropathy and marginal osteophytosis.. Mild bilateral sacroiliac joint degenerative changes. No severe neural foraminal narrowing or spinal canal stenosis. Soft tissues: Unremarkable. IMPRESSION: 1. No acute osseous findings. 2. Multilevel degenerative changes.
[2024-05-08] MEDS: METHOCARBAMOL 500MG TABLET 500 MG PO (17:12)
[2024-05-08] MEDS: KETOROLAC 30MG/ML VIAL 15 MG IM (17:12)
[2024-05-08] MEDS: LIDOCAINE 5% TRANSDERMAL PATCH 1 EACH TP (17:12)
[2024-05-08 17:17] LABS: Influenza A, PCR Detected (NotDetected)
[2024-05-08 17:30] VITALS: BP 123/80; PULSE 96; O2SAT 97
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
--- NOTE | 2024-05-08 17:35 | PC.NURSE ---
pt deborah guillermina the side of the bed. states his pain has eased some but not completely.
[2024-05-08 18:00] VITALS: BP 110/91; PULSE 101; O2SAT 96
[2024-05-08 18:30] VITALS: BP 111/69; PULSE 96; O2SAT 96
[2024-05-08 18:53] VITALS: BP 108/66; PULSE 93; RESP 16; TEMP 37.3; O2SAT 99
== END 2024-05-08 18:55 | disposition home or self-care (01) ==
PROVIDERS: Emergency Provider Emergency Medicine; PCP Family Medicine
DX: J10.1 Influenza due to other identified influenza virus with other respiratory manifestations (principal); M54.9 Dorsalgia, unspecified; G89.29 Other chronic pain; R11.2 Nausea with vomiting, unspecified; M79.10 Myalgia, unspecified site; R05.9 Cough, unspecified; R09.81 Nasal congestion; F17.290 Nicotine dependence, other tobacco product, uncomplicated; Z20.828 Contact with and (suspected) exposure to other viral communicable diseases
CPT/HCPCS: 72131; 87636; 96372; 99284; J1885

== ENCOUNTER 2024-11-08 10:04 | Outpatient (CLI) | payer OTHER, SELFPAY ==
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
--- OUTSIDE RECORDS SUMMARY | 2024-11-08 10:15 | XMS_ITS | Patient Health Record ---
Author Organization [facility] [place] Address [address] [address] Care Team Providers Care Key Account Director Name Role Phone CATARINO DAS Primary Care Provider [phone] Reason For Referral No Information Medications Medication SIG (Take, Route, Fr equency, Duration) Notes Start Date End Date Status Mobic 7.5 mg 1 (one) tablet oral oral 2 times a day; Duration: one 03/26/2016 Active Plan Of Treatment No Information Insurance Providers Payer Name Payer Address Payer Phone Subscriber Number Group Number Insured Name Patient Relationship to Insured Coverage Start Date Coverage End Date [employer] [place] [employer] [facility] [address] [place] [address] [id number] Pipo Ritchie Self - patient is the insured Medical (General) History Surgical History Surgery Date(Month/Year) TUBES TONSILS REMOVED
== END 2024-11-08 23:59 | disposition home or self-care (01) ==
LOC: RT 10:05
PROVIDERS: PCP Nurse Practitioner Family; Visit Provider Nurse Practitioner Family
DX: M79.605 Pain in left leg (principal); W22.8XXA Striking against or struck by other objects, initial encounter
CPT/HCPCS: 93971